=== PATIENT | female | born 1970 | race Caucasian/White ===

== ENCOUNTER → 2018-09-23 | Outpatient (CLI) | payer OTHER ==
[~2018-09-23] MED LIST: ESZO1 PO; LORA1 PO; MONT5TCH PO; OMEP20ER PO
[2018-09-26 15:07] LABS: HPV 16 Negative (Negative); HPV 18 Negative (Negative); HPV OTHER HR TYPES Negative (Negative)
== END | disposition home or self-care (01) ==
LOC: LAB SHORT 11:14 → LAB 11:14
PROVIDERS: Advanced Practice Midwife
DX: Z01.419 Encounter for gynecological examination (general) (routine) without abnormal findings (principal)
CPT/HCPCS: 87624; G0123

== ENCOUNTER 2021-04-14 02:06 | Emergency (ER) | payer OTHER ==
[~2021-04-14] VITALS: Ht 167.6 cm; Wt 99.8 kg
[2021-04-14] MEDS ORDERED: DECADRON6 M2 PO (03:19)
[2021-04-14] MEDS ORDERED: ONDA4ODT MM (03:19)
== END 2021-04-14 04:35 | disposition home or self-care (01) ==
LOC: ER 02:06
DX: U07.1 COVID-19 (principal); J45.909 Unspecified asthma, uncomplicated
CPT/HCPCS: 36415; 93005; 93010; 99283-25; A9270

== ENCOUNTER 2021-04-15 15:07 | Inpatient (IN) | payer OTHER ==
[~2021-04-15] VITALS: Ht 167.6 cm; Wt 95.8 kg
[~2021-04-15 15:07] MED LIST changes: +DECADRON6 M2 PO; +ONDA4ODT MM
[2021-04-15 16:14] LABS: BASOPHILS ABSOLUTE AUTO 0.04 K/mm3 (0.00-0.23); BASOPHILS PERCENT AUTO 0 % (0-2); EOSINOPHILS PERCENT AUTO 0 % (0-6); Hematocrit 41.5 % (33.0-51.0); Hemoglobin 13.6 g/dL (11.5-16.0); IMMATURE GRAN ABSOLUTE AUTO 0.46 K/mm3 (0.00-0.10); IMMATURE GRAN PERCENT AUTO 3 % (0-1); LYMPHOCYTES ABSOLUTE AUTO 1.15 K/mm3 (0.84-5.20); LYMPHOCYTES PERCENT AUTO 7 % (21-46); MONOCYTES ABSOLUTE AUTO 1.29 K/mm3 (0.16-1.47); MONOCYTES PERCENT AUTO 8 % (4-13); Mean Corpuscular HGB 29.2 pg (26.0-34.0); Mean Corpuscular HGB Conc 32.8 g/dL (31.5-36.5); Mean Corpuscular Volume 89 fL (80-100); NEUTROPHILS ABSOLUTE AUTO 13.99 K/mm3 (1.96-9.15); NEUTROPHILS PERCENT AUTO 83 % (41-73); Platelet Count 418 K/mm3 (150-400); RDW Coefficient Variation 13.4 % (11.7-14.2); RDW Standard Deviation 43.8 fL (35.1-46.3); Red Blood Cell Count 4.65 M/mm3 (3.80-5.20); White Blood Cell Count 16.93 K/mm3 (4.00-11.30)
[2021-04-15 16:54] LABS: Alanine Aminotransfer (ALT/SGP 97 U/L (12-78); Albumin, Blood 2.9 g/dL (3.4-5.0); Albumin/Globulin Ratio 0.5 (0.8-1.8); Alk Phos 70 U/L (50-136); Anion Gap 6 mmol/L (6-16); Aspartate Aminotrans (AST/SGOT 69 U/L (12-37); Bilirubin, Total 0.3 mg/dL (0.1-1.0); Blood Urea Nitrogen 17 mg/dL (8-24); Bun/Creatinine Ratio 26.9 (12.0-20.0); CO2, Blood 27 mmol/L (21-32); Calcium, Blood 9.1 mg/dL (8.5-10.1); Chloride, Blood 104 mmol/L (98-108); Creatinine, Blood 0.63 mg/dL (0.40-1.00); Globulin, Blood 5.3 g/dL (2.2-4.0); Glomerular Filtration Rate >60 (60-); Glucose, Blood 134 mg/dL (70-99); Potassium, Blood 4.4 mmol/L (3.5-5.5); Sodium, Blood 137 mmol/L (136-145); Total Protein, Blood 8.2 g/dL (6.4-8.2); Troponin I <0.015 ng/mL (0.000-0.040)
[2021-04-15 23:09] LABS: Source, Urine Catheter
[2021-04-15 23:18] LABS: Bilirubin, Urine Neg (Neg); Blood, Urine Neg (Neg); Glucose Qualitative, Urine Neg (Neg); Ketones, Urine Neg (Neg); Leukocyte Esterase, Urine 1+ (Neg); Nitrite, Urine Neg (Neg); Protein, Urine 1+ (Neg); Specific Gravity, Urine 1.015 (1.003-1.022); Urobilinogen, Urine NORM (Normal); pH, Urine 6.5 (5.0-8.0)
[2021-04-15 23:24] LABS: Appearance, Urine Clear (Clear); Color, Urine Yellow (P-Yellow)
[2021-04-15 23:25] LABS: Red Blood Cells, Urine 0-2 /hpf (0-2); Squamous Epithelial Cells Few /hpf (Few)
[2021-04-15 23:26] LABS: Bacteria Few /hpf
[2021-04-16 04:18] LABS: BASOPHILS ABSOLUTE AUTO 0.06 K/mm3 (0.00-0.23); BASOPHILS PERCENT AUTO 0 % (0-2); EOSINOPHILS PERCENT AUTO 0 % (0-6); Hematocrit 37.6 % (33.0-51.0); Hemoglobin 12.3 g/dL (11.5-16.0); IMMATURE GRAN ABSOLUTE AUTO 0.54 K/mm3 (0.00-0.10); IMMATURE GRAN PERCENT AUTO 3 % (0-1); LYMPHOCYTES ABSOLUTE AUTO 1.57 K/mm3 (0.84-5.20); LYMPHOCYTES PERCENT AUTO 10 % (21-46); MONOCYTES ABSOLUTE AUTO 1.41 K/mm3 (0.16-1.47); MONOCYTES PERCENT AUTO 9 % (4-13); Mean Corpuscular HGB Conc 32.7 g/dL (31.5-36.5); Mean Corpuscular Volume 89 fL (80-100); Mean Platelet Volume 9.8 fL (9.1-12.4); NEUTROPHILS ABSOLUTE AUTO 13.01 K/mm3 (1.96-9.15); NEUTROPHILS PERCENT AUTO 78 % (41-73); Platelet Count 410 K/mm3 (150-400); RDW Coefficient Variation 13.2 % (11.7-14.2); RDW Standard Deviation 43.2 fL (35.1-46.3); Red Blood Cell Count 4.24 M/mm3 (3.80-5.20); White Blood Cell Count 16.59 K/mm3 (4.00-11.30)
[2021-04-16 04:40] LABS: Alanine Aminotransfer (ALT/SGP 70 U/L (12-78); Albumin, Blood 2.5 g/dL (3.4-5.0); Albumin/Globulin Ratio 0.5 (0.8-1.8); Alk Phos 61 U/L (50-136); Anion Gap 6 mmol/L (6-16); Aspartate Aminotrans (AST/SGOT 42 U/L (12-37); Bilirubin, Total 0.2 mg/dL (0.1-1.0); Blood Urea Nitrogen 15 mg/dL (8-24); Bun/Creatinine Ratio 27.4 (12.0-20.0); CO2, Blood 27 mmol/L (21-32); Chloride, Blood 106 mmol/L (98-108); Creatinine, Blood 0.55 mg/dL (0.40-1.00); Globulin, Blood 4.6 g/dL (2.2-4.0); Glomerular Filtration Rate >60 (60-); Glucose, Blood 122 mg/dL (70-99); Potassium, Blood 4.1 mmol/L (3.5-5.5); Sodium, Blood 139 mmol/L (136-145); Total Protein, Blood 7.1 g/dL (6.4-8.2)
--- NOTE | 2021-04-16 04:44 | NUR ---
SUMMARY PT ARRIVED TO FLOOR ON BIPAP. PT REPORTS TAN W/ LITTLE MOVEMENT. PT UNABLE TO TOLERATE BEING OFF MASK TO TAKE IN PO FLUIDS. PROVIDER ORDERED A OT BAG NS FLUIDS. PT ABLE TO PRONE AND GET FIO2 REDUCED. PT CURRENTLY LAYING PRONE AND IN NO DISTRESS. PT STATES SHE IS COMFORTABLE. PT HAS ALLRED CATH PLACED AND IS DRAINING TO GRAVITY.
--- NOTE | 2021-04-16 18:20 | NUR ---
PT HAS BEEN IN PRONE POSITION FOR MOST OF THE DAY WITH SPO2 IN THE MID 90s. PT WAS PLACED ON AIRVO BRIEFLY TODAY WHICH SHE TOLERATED WELL FOR ABOUT 30 MINUTES BEFORE SHE REQUIRED RETURN TO BIPAP. PT IS A/O X3, ANSWERS QUESTIONS APPROPRIATELY IN SHORT SENTENCES. PT DENIES CP, REPORTS SOB WITH MOVEMENT. C/O LEMOS AND NECK PAIN T/O THE DAY R/T PRONING, TREATED WITH MORHPINE FOR PAIN WHICH WAS TOLERATED WELL. PT WAS GIVEN ROBITUSSIN AC THIS EVENING FOR COUGH. PT IS CURRENTLY RESTING IN PRONE POSITION IN BED.
[2021-04-17 04:57] LABS: Hematocrit 35.9 % (33.0-51.0); Hemoglobin 11.5 g/dL (11.5-16.0); Mean Corpuscular HGB 29.3 pg (26.0-34.0); Mean Corpuscular Volume 92 fL (80-100); Mean Platelet Volume 9.5 fL (9.1-12.4); Platelet Count 377 K/mm3 (150-400); RDW Coefficient Variation 13.5 % (11.7-14.2); RDW Standard Deviation 45.4 fL (35.1-46.3); Red Blood Cell Count 3.92 M/mm3 (3.80-5.20); White Blood Cell Count 13.42 K/mm3 (4.00-11.30)
[2021-04-17 05:46] LABS: Alanine Aminotransfer (ALT/SGP 51 U/L (12-78); Albumin, Blood 2.3 g/dL (3.4-5.0); Albumin/Globulin Ratio 0.5 (0.8-1.8); Alk Phos 56 U/L (50-136); Anion Gap 5 mmol/L (6-16); Aspartate Aminotrans (AST/SGOT 35 U/L (12-37); Bilirubin, Total 0.2 mg/dL (0.1-1.0); Blood Urea Nitrogen 17 mg/dL (8-24); CO2, Blood 27 mmol/L (21-32); Calcium, Blood 8.1 mg/dL (8.5-10.1); Chloride, Blood 106 mmol/L (98-108); Creatinine, Blood 0.52 mg/dL (0.40-1.00); Globulin, Blood 4.5 g/dL (2.2-4.0); Glomerular Filtration Rate >60 (60-); Glucose, Blood 93 mg/dL (70-99); Magnesium, Blood 2.1 mg/dL (1.6-2.4); Potassium, Blood 4.1 mmol/L (3.5-5.5); Sodium, Blood 138 mmol/L (136-145); Total Protein, Blood 6.8 g/dL (6.4-8.2)
--- NOTE | 2021-04-17 06:36 | NUR ---
SHIFT SUMMARY PATIENT IS AN ANXIOUS LADY WHO IS A&OX4, WITH GEN WEAKNESS/FATIGUE. ON BIPAP 75% MOST OF THE NIGHT AND INTERMITTENTLY ON AIRVO 60L, 80% FOR DRINKS AND MEDS. ON THE AIRVO CURRENTLY AND TOLERATING THIS WELL SATING IN THE MID 90'S. COARSE CRACKLES HEARD BILATERALLY. TACHYPENIC. GASPING FOR AIR WHEN TALKING SO KEEPING THIS TO A MINIMUM. DOING A GREAT JOB AT SELF PRONING AND SIDE TO SIDE. NSR ON THE MONITOR. VSS. COGUH SYRUP GIVEN FOR PRODUCTIVE COUGH AND MORPHINE FOR BACK SORENESS WITH GOOD RELIEF. REG DIET BUT POOR ORAL INTAKE R/T BREATHING. ALLRED IN PLACE DRAINING TO GRAVITY. BEDREST UNTIL O2 DEMANDS DOWN.NO ACUTE CONCERNS AT THIS TIME. WILL CONTINUE TO MONITOR UNTIL REPORT GIVEN TO DAYSHIFT RN.
--- NOTE | 2021-04-18 05:26 | NUR ---
SHIFT SUMMARY NO ACUTE CHANGES THIS SHIFT. PT A&OX4, SOMEWHAT ANXIOUS. SP02>90% ON BIPAP, 07/30, 90% FI02. PT ALSO WORE AIRVO, 60L, 90%, WHEN FEELING CLAUSTROPHOBIC ON BIPAP. DYSPNEA W/ ANY EXERTION. DESATS TO LOW 80'S WHEN REPOSITIONING, RECOVERS SLOWLY OVER A FEW MINUTES. PT REPOSITIONED AND PRONED SELF DURING SHIFT. TELEMETRY READ NSR/SB, HR 50'S-60'S. ALLRED CATHETER DRAINING CLEAR YELLOW URINE TO GRAVITY. PT C/O OF BACK AND NECK PAIN. MEDICATED PER EMAR AND PLACED HEATING PAD W/ SOME RELIEF. FLUIDS INFUSING PER EMAR. CALL LIGHT IN REACH. WILL GIVE REPORT TO ONCOMING NURSE.
--- NOTE | 2021-04-18 18:53 | NUR ---
SHIFT SUMMARY: PT CONTINUES A&OX4 W/MOMENTS OF MILD ANXIETY. PT MAINTAINING RESPIRATORY STATUS, SWITCHING BETWEEN BIPAP AT 12/8 AND AIRVO AT 60 L AND 80%, O2 SATS >90%. SR ON MONITOR. INDWELLING ALLRED PATENT, DRAINING TO GRAVITY. PT UP TO BEDSIDE CHAIR THIS AFTERNOON, TOLERATED WELL. PT ALSO RECEIVING PRN MEDICATION FOR PAIN AND ANXIETY. WILL CONTINUE TO MONITOR AND TREAT ACCORDINGLY UNTIL CHANGE OF SHIFT.
--- NOTE | 2021-04-18 22:31 | NUR ---
ASSUMED CARE OF CHELA AT APPROXIMATELY 1905 FROM JACEY Valerio RN. PATIENT ALERT AND ORIENTED X4; PATIENT REPORTS PAIN IN HER BACK; K-PAD IN PLACE AND MEDICATED PER EMAR. PATIENT DENIES NUMBNESS, TINGLING, DIZZINES OR NAUSEA. NSR ON TELE; OXYGEN SATURATION ABOVE 90% ON BIPAP 12/8 70% FIO2. PATIENT HELPS TO TURN SELF. URINARY CATH DRAINING TO GRAVITY.
--- NOTE | 2021-04-19 00:30 | NUR ---
PATIENT HAD COUGHING EPISODE AND OXYGEN SATURATION DROPPED TO LOW 80S; GIVEN PRN COUGH MEDICATION; TITRATED UP TO 100 FIO2 ON BIPAP AND NOT GOING ABOVE 84% FOR ABOUT FIVE MINUTES; PATIENT ENCOURAGED TO PRONE; RT NOTIFIED; MADE COMFORTABLE ON STOMACH AND PATIENT ABLE BACK UP TO 92%
--- NOTE | 2021-04-19 04:00 | NUR ---
RT GAY CALLED THIS RN TO ROOM TO REPORT PATIENT'S RESPIRATORY RATE IN THE 50'S; PATIENT ANXIOUS AND REPORTS CRAMPS IN ABDOMEN; MEDICATED FOR ANXIETY. CHELA REPORTS "I'M JUST TRYING TO WORK THROUGH A CRAMP"; REPORTS BACK PAIN; MEDICATED PER EMAR. RESPIRATORY RATE 30-50'S. REPORTS IMPROVEMENT AFTER ATIVAN AND PAIN MEDICATION.
[2021-04-19 04:43] LABS: Hematocrit 36.8 % (33.0-51.0); Hemoglobin 11.9 g/dL (11.5-16.0); Mean Corpuscular HGB 28.6 pg (26.0-34.0); Mean Corpuscular HGB Conc 32.3 g/dL (31.5-36.5); Mean Corpuscular Volume 89 fL (80-100); Mean Platelet Volume 9.5 fL (9.1-12.4); Platelet Count 314 K/mm3 (150-400); RDW Standard Deviation 42.5 fL (35.1-46.3); Red Blood Cell Count 4.16 M/mm3 (3.80-5.20); White Blood Cell Count 17.86 K/mm3 (4.00-11.30)
[2021-04-19 05:16] LABS: Alanine Aminotransfer (ALT/SGP 44 U/L (12-78); Albumin, Blood 2.4 g/dL (3.4-5.0); Albumin/Globulin Ratio 0.5 (0.8-1.8); Alk Phos 64 U/L (50-136); Anion Gap 4 mmol/L (6-16); Aspartate Aminotrans (AST/SGOT 29 U/L (12-37); Bilirubin, Total 0.6 mg/dL (0.1-1.0); Blood Urea Nitrogen 14 mg/dL (8-24); Bun/Creatinine Ratio 28.7 (12.0-20.0); CO2, Blood 32 mmol/L (21-32); Calcium, Blood 8.6 mg/dL (8.5-10.1); Chloride, Blood 101 mmol/L (98-108); Creatinine, Blood 0.49 mg/dL (0.40-1.00); Globulin, Blood 4.8 g/dL (2.2-4.0); Glomerular Filtration Rate >60 (60-); Glucose, Blood 90 mg/dL (70-99); Potassium, Blood 3.5 mmol/L (3.5-5.5); Sodium, Blood 137 mmol/L (136-145); Total Protein, Blood 7.2 g/dL (6.4-8.2)
[2021-04-19 05:26] LABS: C-REACTIVE PROTEIN, EXT RANGE >19.000 mg/dL (0.000-0.300)
--- NOTE | 2021-04-19 06:05 | NUR ---
CALLED DR. HAYWARD TO REPORT D-DIMER OF 11; WORSEN RESPIRATORY STATUS; ORDERS FOR CT PE.
--- NOTE | 2021-04-19 18:57 | NUR ---
PT A&OX4 AND ABLE TO MAKE NEEDS KNOWN. PT HAS BEEN CHANGING FROM AIRVO TO BIPAP DURING SHIFT. PT O2 SATURATIONS HAVE RANGED FROM MID 80'S TO MID 90'S. PT C/O BACK PAIN, NECK PAIN, AND A HEAD ACHE DURING SHIFT. MEDICATED PER EMAR.
--- NOTE | 2021-04-19 20:20 | NUR ---
ASSUMED CARE OF PATIENT AT APPROXIMATELY 1900 FROM KENDRA Elizondo RN. PATIENT ALERT AND ORIENTED X4; PATIENT REPORTS PAIN IN HER BACK; K-PAD IN PLACE AND MEDICATED PER EMAR. PATIENT ANXIOUS AT TIMES; REPORTS FEELING BETTER; PATIENT DENIES NUMBNESS, TINGLING, DIZZINES OR NAUSEA. NSR ON TELE; OXYGEN SATURATION ABOVE 90% ON BIPAP 12/8 100% FIO2. PATIENT HELPS TO TURN SELF. URINARY CATH DRAINING TO GRAVITY.
--- NOTE | 2021-04-19 21:05 | NUR ---
PATIENT HAD COUGHING EPISODE AND VERY ANXIOUS; MEDIATED PER EMAR. PATIENT WAS AT 85% AND DROPPED DOWN TO 81%; ENCOURAGED TO PRONE; PATIENT PRONE AND SATS WENT UP TO 88% AND WOULD GO BETWEEN 81-88%; RT CALLED AND PATIENT'S PRESSURES ON BIPAP ADJUSTED; SATS UP TO 92%
--- NOTE | 2021-04-20 01:39 | NUR ---
PATIENT'S OXYGEN SATURATION 84-86% WHILE PRONING MAXED OUT ON BIPAP SLEEPING; DISCUSSED WITH RT; PRESSURES INCREASED TO FROM 08/05 TO ; ALSO DISCUSSED WITH ICU ROAD TRAFFIC CONTROLLER AND PATIENT PLACED IN REVERSE [place] WHILE PATIENT PRONE; CURRENT OXYGEN SATURATION 96%.
[2021-04-20 05:55] LABS: BASOPHILS ABSOLUTE AUTO 0.08 K/mm3 (0.00-0.23); BASOPHILS PERCENT AUTO 0 % (0-2); EOSINOPHILS ABSOLUTE AUTO 0.07 K/mm3 (0.00-0.68); EOSINOPHILS PERCENT AUTO 0 % (0-6); Hematocrit 35.3 % (33.0-51.0); Hemoglobin 11.4 g/dL (11.5-16.0); IMMATURE GRAN ABSOLUTE AUTO 1.12 K/mm3 (0.00-0.10); IMMATURE GRAN PERCENT AUTO 6 % (0-1); LYMPHOCYTES ABSOLUTE AUTO 1.69 K/mm3 (0.84-5.20); LYMPHOCYTES PERCENT AUTO 9 % (21-46); MONOCYTES ABSOLUTE AUTO 0.91 K/mm3 (0.16-1.47); MONOCYTES PERCENT AUTO 5 % (4-13); Mean Corpuscular HGB 28.7 pg (26.0-34.0); Mean Corpuscular HGB Conc 32.3 g/dL (31.5-36.5); Mean Corpuscular Volume 89 fL (80-100); NEUTROPHILS ABSOLUTE AUTO 14.98 K/mm3 (1.96-9.15); NEUTROPHILS PERCENT AUTO 80 % (41-73); Platelet Count 224 K/mm3 (150-400); RDW Coefficient Variation 13.1 % (11.7-14.2); Red Blood Cell Count 3.97 M/mm3 (3.80-5.20); White Blood Cell Count 18.85 K/mm3 (4.00-11.30)
[2021-04-20 06:20] LABS: Anion Gap 3 mmol/L (6-16); Blood Urea Nitrogen 13 mg/dL (8-24); Bun/Creatinine Ratio 24.9 (12.0-20.0); CO2, Blood 32 mmol/L (21-32); Calcium, Blood 8.8 mg/dL (8.5-10.1); Chloride, Blood 98 mmol/L (98-108); Creatinine, Blood 0.52 mg/dL (0.40-1.00); Glomerular Filtration Rate >60 (60-); Glucose, Blood 82 mg/dL (70-99); Potassium, Blood 4.3 mmol/L (3.5-5.5); Sodium, Blood 133 mmol/L (136-145)
--- NOTE | 2021-04-20 06:50 | NUR ---
PATIENT SLEPT ABOUT SIX HOURS; BED BATH GIVEN; NO CHANGES ON OXYGEN; ON BIPAP ALL NIGHT; 88-92%; R/R UP TO 50 AT TIMES.
--- NOTE | 2021-04-20 09:30 | NUR ---
PATIENT ALERT AND ORIENTED X 4. PATIENT HAS TEMP OF 99.9 DEGREES FAHRENHEIT. PATIENT ANXIOUS. PATIENT GIVEN 2 MG PRN IV ATIVAN AND STARTED ON PRECEDEX DRIP AT 0.6 MCG/ KG/ HOUR. PATIENT WEAK BUT ABLE TO REPOSITION SELF. PATIENT ON BIPAP SETTINGS OF 17/15, RATE OF 10 AND 100% FIO2. LUNGS DIMINISHED THROUGHOUT. PATIENT HAS MOIST, PRODUCTIVE COUGH. PATIENT STATES SHE IS NOT LOOKING AT PHLEGM. PATIENT IN ST, HR IN THE 1-TEENS. SBP IN THE 120S. PATIENT NPO. ALLRED DRAINING YELLOW COLORED URINE. PATIENT MENSTRATING. SKIN APPEARS WNL. NS TKO. BED LOW, CALL LIGHT IN REACH. PATIENT ORIENTED TO UNIT, ROOM AND CALL LIGHT. WILL CONTINUE TO MONITOR PATIENT FREQUENTLY THROUGHOUT SHIFT.
--- NOTE | 2021-04-20 09:35 | NUR ---
PATIENT PAIN AND TRANSFER TO ICU: LATE ENTRY: PRIOR TO TRANSFER TO THE ICU, PATIENT MEDICATED FOR PAIN PER PRNS BY HELPER RN. PATIENT TRANSFERED TO ICU WITH ASSISTANCE OF INSTRUCTOR DANCING KAREN. FAMILY WAS CALLED AND NOTIFIED BY INSTRUCTOR DANCING. KAREN.
--- NOTE | 2021-04-20 10:15 | NUR ---
PATIENT'S ARRIVED TO SEE PATIENT. DR. KAY AND PRIMARY NURSE SPOKE WITH PATIENT. DR. KAY EXPLAINED THAT IT IS LIKELY WE WILL HAVE TO INTUBATE PATIENT AND THE SERIOUSNESS OF COVID AND BEING PLACED ON VENTILATOR. GOING INTO ROOM TO SPEAK WITH PATIENT NOW.
--- NOTE | 2021-04-20 13:45 | NUR ---
PATIENT HAS TEMP OF 100.2 DEGREES FAHRENHEIT. PATIENT NOT ANXIOUS SHE WAS UPON ARRIVAL. PATIENT REMAINS ON PRECEDEX. PATIENT REMAINS ON SAME BIPAP SETTINGS. RR 20S TO 40S. HR 70S TO 80S. SBP LOW 100S TO 120S. NO COMPLAINTS AT THIS TIME. WILL CONTINUE TO MONITOR.
--- NOTE | 2021-04-20 16:00 | NUR ---
HR IN THE 60S. SBP 120S TO 130S. RR 30S. BIPAP REMAINS UNCHANGED. NO OTHER CHANGES AT THIS TIME.
--- NOTE | 2021-04-20 18:40 | NUR ---
SHIFT SUMMARY PATIENT REMAINED ALERT AND ORIENTED. PATIENT MOSTLY SLEPT AFTER BEING PLACED ON PRECEDEX TO HELP WITH ANXIETY. PRECEDEX HAS REMAINED AT 0.6 MCG/ KG/ HOUR. PATIENT HAD TMAX OF 100.2 DEGREES FAHRENHEIT. PATIENT HAD NO COMPLAINTS OF PAIN. PATIENT REMAINED WEAK BUT ABLE TO REPOSITION SELF IN BED. LUNGS REMAINED DIMINISHED T/O. PATIENT REMAINED ON BIPAP 17/, RATE OF 10 AND 100% FIO2. PATIENT CONTINUED TO HAVE OCCASIONAL, MOIST, PRODUCTIVE COUGH. PATIENT SR TO ST, HR 60S TO 1-TEENS. SBP 90S TO 130S. PATIENT INCREASED FROM NPO TO CLEAR LIQUID DIET. NO BM THIS SHIFT. ALLRED DRAINED 900 MLS OF YELLOW COLORED URINE. PATIENT ON MENSTRATION; ATTENDS IN PLACE. SKIN WNL. NS TKO. LR AT 50 MLS/ HOUR. PATIENT APPEARS COMFORTABLE AT THIS TIME. BED LOW, CALL LIGHT IN REACH. REPORT WILL BE GIVEN TO ONCOMING CLINICAL TRIAL ASSOCIATE NURSE SHORTLY.
--- NOTE | 2021-04-20 22:23 | NUR ---
SHIFT ASSESSMENT ASSUMED CARE OF PT @ 1900. PT A&OX4, MOVING ALL EXTREMITIES, ASSISTING WITH MOVEMENTS IN BED. BECOMES DYSPNEIC WITH SMALL MOVEMENTS. ON BIPAP-17/15 @ 100% c SATS RANGING FROM 90-95%, RR 35-40. PRECEDEX @ 0.6MCG/KG/HR. OCCASIONAL MOIST COUGH. SINUS/ SINUS NITIN ON THE MONITOR. BP STABLE. ALLRED CATH PATENT, DRAINING YELLOW URINE. PT ON MENSES, ATTENDS IN PLACE. UPDATED.
[2021-04-21 04:15] LABS: BASOPHILS ABSOLUTE AUTO 0.06 K/mm3 (0.00-0.23); BASOPHILS PERCENT AUTO 0 % (0-2); EOSINOPHILS ABSOLUTE AUTO 0.01 K/mm3 (0.00-0.68); EOSINOPHILS PERCENT AUTO 0 % (0-6); Hematocrit 33.8 % (33.0-51.0); Hemoglobin 11.2 g/dL (11.5-16.0); IMMATURE GRAN ABSOLUTE AUTO 1.01 K/mm3 (0.00-0.10); IMMATURE GRAN PERCENT AUTO 6 % (0-1); LYMPHOCYTES ABSOLUTE AUTO 0.98 K/mm3 (0.84-5.20); LYMPHOCYTES PERCENT AUTO 6 % (21-46); MONOCYTES ABSOLUTE AUTO 0.78 K/mm3 (0.16-1.47); MONOCYTES PERCENT AUTO 5 % (4-13); Mean Corpuscular HGB 28.9 pg (26.0-34.0); Mean Corpuscular HGB Conc 33.1 g/dL (31.5-36.5); Mean Corpuscular Volume 87 fL (80-100); Mean Platelet Volume 10.5 fL (9.1-12.4); NEUTROPHILS ABSOLUTE AUTO 13.24 K/mm3 (1.96-9.15); NEUTROPHILS PERCENT AUTO 82 % (41-73); Platelet Count 249 K/mm3 (150-400); RDW Coefficient Variation 13.1 % (11.7-14.2); Red Blood Cell Count 3.87 M/mm3 (3.80-5.20); White Blood Cell Count 16.08 K/mm3 (4.00-11.30)
[2021-04-21 04:33] LABS: Albumin, Blood 1.9 g/dL (3.4-5.0); Anion Gap 5 mmol/L (6-16); Blood Urea Nitrogen 18 mg/dL (8-24); Bun/Creatinine Ratio 39.8 (12.0-20.0); CO2, Blood 29 mmol/L (21-32); Calcium, Blood 8.3 mg/dL (8.5-10.1); Chloride, Blood 103 mmol/L (98-108); Creatinine, Blood 0.45 mg/dL (0.40-1.00); Glomerular Filtration Rate >60 (60-); Glucose, Blood 148 mg/dL (70-99); Potassium, Blood 4.5 mmol/L (3.5-5.5); Sodium, Blood 137 mmol/L (136-145)
--- NOTE | 2021-04-21 07:54 | NUR ---
SHIFT SUMMARY PT ALERT AND ORIENTED, REMAINS ON BIPAP @ PREVIOUS SETTINGS. PRECEDEX @ 0.7MCG/KG/HR. AFEBRILE. PT ASSISTING WITH TURNS. ABLE TO SLEEP FOR MOST OF THE NIGHT. ALLRED CATH DRAINING YELLOW URINE. NO SIGNIFICANT CHANGES IN PT CONDITION DURING THE NIGHT.
--- NOTE | 2021-04-21 09:38 | NUR ---
during opral care and repositioning, patient started to drop after ahving to rinse mouth total time off bipap 15 seconds, sp02 dropped in the low 70's. RT and provider aware.
--- NOTE | 2021-04-21 11:55 | NUR ---
CARE ASSUMED SPO2 88-91% ON ARRIVAL, PT ON BIPAP , FIO2 100%, RR 32. LS CLEAR, DIMINISHED, DRY COUGH NOTED. HR 48 SBR WITH PRECEDEX INFUSING, RATE DECREASED TO 0.5MCG, HR NOW 50'S. BP STABLE. PT SLEEPY BUT WAKES EASILY, ORIENTED X4, APPROPRIATE AND COOPERATIVE. AM CARES COMPLETED, PT BECAME INCREASINGLY HYPOXIC WITH SPO2 LOW 80'S DESPITE MASK REPOSITIONING AND RESPIRATORY COACHING. DR. STEVEN AT BEDSIDE TO ASSESS, PT PRONED AT 0950 WITH GOOD RESULTS. BIPAP SETTINGS UNCHANGED, SPO2 NOW 96%, PT SLEEPING IN PRONE POSITION. WILL CONTINUE TO MONITOR.
--- NOTE | 2021-04-21 19:15 | NUR ---
ASSUMED CARE PT IS ON BIPAP WITH FIO2 100%. SPO2 IN MID 90'S, DROPS TO 80'S WITH EXERTION. SHE IS AOX4/4, PERRL 3MM, LS CLEAR, DIM IN BASES. ABD OBESE, BT PRESENT, ON CLINIMIX DUE TO UNABLE TO TOLERATE BREAKS FROM BIPAP. ALLRED DRAINING MAXX URINE. ON PRECEDEX GTT FOR BIPAP TOLERANCE. WILL CONTINUE TO MONITOR.
--- NOTE | 2021-04-21 19:51 | NUR ---
SHIFT SUMMARY PT WAS PRONED ALL DAY UNTIL AROUND 1800 THIS EVENING WITH SPO2 96%, BIPAP SETTINGS UNCHANGED. TOELRATED BIPAP AND PRONING WELL WITH PRECEDEX 0.5MCG. PT REPOSITIONED SELF ONTO BACK THIS EVENING AND SPO2 DECREASED TO 87%, ALLOWING PT A SHORT BREAK BEFORE PRONING AGAIN. MEDICATED X2 WITH MS FOR BACK PAIN, PT DENIED OTHER C/O TODAY. CLINIMIX STARTED PER ORDERS.
--- NOTE | 2021-04-21 20:23 | NUR ---
DR. STEVEN CONTACTED REGARDING CONCERN FOR DECREASED O2 SAT. PT HAD TURNED TO HER SIDE AND SPO2 DROPPED FROM THE MID 90'S TO MID 80'S, SO PT WAS ENCOURAGED TO PRONE. SHE HAS BEEN IN PRONE POSITION FOR APPROX 20 MIN AND SPO2 REMAINS BELOW 90%. MAY TOLERATE SPO2 OF 86% OR GREATER AND CALL HOSPITALIST FOR INTUBATION IF PT CRASHES.
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
--- NOTE | 2021-04-22 02:30 | NUR ---
PT IS ASSISTED WITH SIP OF WATER AND REQUESTS PAIN MEDICATIONS FOR HER BACK. PAIN MED GIVEN WELL BACK RUB AND HEATING PAD APPLIED.
[2021-04-22 05:05] LABS: BASOPHILS ABSOLUTE AUTO 0.04 K/mm3 (0.00-0.23); BASOPHILS PERCENT AUTO 0 % (0-2); EOSINOPHILS PERCENT AUTO 0 % (0-6); Hematocrit 33.7 % (33.0-51.0); IMMATURE GRAN ABSOLUTE AUTO 0.82 K/mm3 (0.00-0.10); IMMATURE GRAN PERCENT AUTO 4 % (0-1); LYMPHOCYTES ABSOLUTE AUTO 0.88 K/mm3 (0.84-5.20); LYMPHOCYTES PERCENT AUTO 4 % (21-46); MONOCYTES PERCENT AUTO 5 % (4-13); Mean Corpuscular HGB 28.9 pg (26.0-34.0); Mean Corpuscular HGB Conc 32.6 g/dL (31.5-36.5); Mean Corpuscular Volume 89 fL (80-100); Mean Platelet Volume 10.5 fL (9.1-12.4); NEUTROPHILS ABSOLUTE AUTO 17.09 K/mm3 (1.96-9.15); NEUTROPHILS PERCENT AUTO 86 % (41-73); Platelet Count 317 K/mm3 (150-400); RDW Coefficient Variation 13.2 % (11.7-14.2); RDW Standard Deviation 42.7 fL (35.1-46.3); White Blood Cell Count 19.83 K/mm3 (4.00-11.30)
--- NOTE | 2021-04-22 06:42 | NUR ---
SHIFT SUMMARY PT HAS EPISODE OF SPO2 IN MID 80'S FOLLOWING TURNING IN BED, WHICH CAUSED HER SOME SIGNIFICANT ANXIETY EARLY IN THE SHIFT. PT IS REASSURED, GIVEN MEDICATION FOR ANXIETY, AND BACK RUB FOR PAIN WHILE PRONED. PAIN MED AND KPAD HELPED WITH BACK PAIN. PT STAYED IN PRONE POSITION FOR SEVERAL HOURS , THEN LAYED ON R SIDE WITH HOB ELEVATED. SPO2 REMAINED IN THE 90'S FOR THE REST OF THE NIGHT WITH THE EXCEPTION OF SHORT BREAKS FOR ORAL CARE AND SIPS OF WATER. SPO2 DROPS TO 70'S AND 80'S DURING BREAKS BUT RECOVERS QUICKLY. PT HAS STILL NOT HAD BM. UO 700ML DARK MAXX. PT HAS OCC DRY COUGH. WILL CONTINUE TO MONITOR AND REPORT TO ONCOMING SHIFT.
--- NOTE | 2021-04-22 09:13 | NUR ---
CARE ASSUMED ASSESSMENTS COMPLETED, PT REMAINS A&O, ANXIOUS BUT COOPERATIVE. ON BIPAP 17/5, FIO2 100%. RR 30'S, SPO2 93% AT REST, 87% WITH ACTIVITY, RECOVERS WELL. Vt 400-500. LS CLEAR, DIMINISHED, DRY COUGH NOTED. HR 50'S-60'S ON PRECEDEX 0.5MCG, ATIVAN ADMINISTERED FOR ANXIETY AT THIS TIME. BP STABLE, PPP, NO EDEMA NOTED, SKIN PWD WITH CMS INTACT. URINE CLEAR YELLOW, PT MENSTRUATING. AM CARES COMPLETED.
--- NOTE | 2021-04-22 14:49 | NUR ---
INTUBATION NOTE SPO2 DESAT TO LOW 80'S, ATTEMPTED TO REPOSITION TO PRONE, PT REMAINED HYPOXIC, BIPAP MASK LEAKING D/T INCREASED WOB. DR. STEVEN NOTIFIED, DECISION TO INTUBATE. PT'S UPDATED. LEVOPHED ON PER DR. STEVEN, PT SEDATED TO TOTAL OF 4MG VERSED, 20MG ETOMIDATE, AND 40MG ROCURONIUM, PRECEDEX OFF, INTUBATED WITH 8.0 ETT. LS PRESENT BILAT, POSITIVE COLOR CHANGE ON COLORIMETRIC CO2 DEVICE, ETT ADVANCED TO 26CM ALEJANDRO AFTER CXR. OGT INSERTED, PLACEMENT ALSO CONFIRMED ON CXR. VENT AC 24, VC+ 350, Ti 0.98, PEEP 17, FIO2 100%. SPO2 SLOWLY INCREASED TO 92%. PT SEDATED WITH PROPOFOL 40MCG, AND FENTANYL 50MCG/HR, PARALYZED WITH NIMBEX 2.5MCG, PRONED. LS DIMINISHED, COARSE IN LOWER LOBES BILAT, NO ETT SUCTIONING AT THIS TIME D/T INSTABILITY PER RT. HR 100-110 SIT, BP STABLE, LEVO TITRATED OFF. AT BEDSIDE AWAITING UPDATE FROM DR. STEVEN. INTUBATION FLOWSHEET: 1215: LEVOPHED 5MCG/KG/MIN INFUSION 1218: PRECEDEX OFF, VERSED 2MG IVP 1222: ETOMIDATE 20MG IVP 1223: ROCURONIUM 40MG IVP 1224: VERSED 2MG IVP 1225: INTUBATED ETT 8.0, 24CM ALEJANDRO 1230: PROPOFOL INITIATED 20MCG/KG/MIN SEE ICU FLOWSHEET FOR TITRATIONS.
--- NOTE | 2021-04-22 19:00 | NUR ---
END OF SHIFT PT REMAINED PRONE T/O REST OF SHIFT, TOLERATED WELL WITH SPO2 >90%. VSS AT THIS TIME, INTERMITTENT HYPERTENSIVE BP'S, HYDRALAZINE PRN BUT HAS NOT BEEN ADMINISTERED. HR 60-70'S SINUS. LS COARSE, NO ETT SECRETIONS, UNABLE TO COLLECT SPUTUM SAMPLE. VENT SETTINGS UNCHANGED, PROPOFOL 50MCG, FENTANYL 50MCG, NIMBEX 2.5MCG. BIS 40'S, TOF 2/4. PT REPOSITIONED, TF INFUSING PER ORDERS. GIVEN UPDATE BY DR. STEVEN THIS AFTERNOON.
--- NOTE | 2021-04-22 19:15 | NUR ---
ASSUMED CARE OF PT. REPORT RECEIVED FROM TYSON SHEFFIELD AND MARBELLA BALTAZAR. PT WAS INTUBATED AND PLACED ON VENTILATOR TODAY. 8.[address] AT 26 AT TEETH. VENT AC/VC 24/350/17/100%. PT IS IN PRONE POSITION. SEDATION WITH PROPOFOL AND FENTANYL GTTS, NIMBEX FOR VENT COMPLIANCE. TO4 2/4 AND BIS RANGING IN THE 40'S. OG IN PLACE WITH TF AT GOAL, LS DIM. ABD SOFT, BT HYPOACTIVE, NO BM SINCE ADMISSION. ECT NO EDEMA, PULSES PRESENT. WILL CONTINUE TO MONITOR.
[2021-04-23 04:32] LABS: BASOPHILS ABSOLUTE AUTO 0.08 K/mm3 (0.00-0.23); BASOPHILS PERCENT AUTO 0 % (0-2); EOSINOPHILS PERCENT AUTO 0 % (0-6); Hematocrit 34.7 % (33.0-51.0); Hemoglobin 11.2 g/dL (11.5-16.0); IMMATURE GRAN PERCENT AUTO 5 % (0-1); LYMPHOCYTES ABSOLUTE AUTO 0.73 K/mm3 (0.84-5.20); LYMPHOCYTES PERCENT AUTO 3 % (21-46); MONOCYTES ABSOLUTE AUTO 1.06 K/mm3 (0.16-1.47); MONOCYTES PERCENT AUTO 5 % (4-13); Mean Corpuscular HGB 28.8 pg (26.0-34.0); Mean Corpuscular HGB Conc 32.3 g/dL (31.5-36.5); Mean Corpuscular Volume 89 fL (80-100); Mean Platelet Volume 10.3 fL (9.1-12.4); NEUTROPHILS ABSOLUTE AUTO 18.78 K/mm3 (1.96-9.15); NEUTROPHILS PERCENT AUTO 87 % (41-73); Platelet Count 336 K/mm3 (150-400); RDW Coefficient Variation 13.5 % (11.7-14.2); RDW Standard Deviation 44.5 fL (35.1-46.3); Red Blood Cell Count 3.89 M/mm3 (3.80-5.20); White Blood Cell Count 21.65 K/mm3 (4.00-11.30)
[2021-04-23 04:49] LABS: Albumin, Blood 1.9 g/dL (3.4-5.0); Anion Gap 6 mmol/L (6-16); Blood Urea Nitrogen 25 mg/dL (8-24); Bun/Creatinine Ratio 55.2 (12.0-20.0); CO2, Blood 30 mmol/L (21-32); Calcium, Blood 9.1 mg/dL (8.5-10.1); Chloride, Blood 103 mmol/L (98-108); Creatinine, Blood 0.45 mg/dL (0.40-1.00); Glomerular Filtration Rate >60 (60-); Glucose, Blood 175 mg/dL (70-99); Phosphorus, Blood 3.8 mg/dL (2.5-4.9); Potassium, Blood 4.3 mmol/L (3.5-5.5); Sodium, Blood 139 mmol/L (136-145)
--- NOTE | 2021-04-23 08:30 | NUR ---
INITIAL ASSESSMENT PATIENT INTUBATED, SEDATED AND PARALYZED. BIS IN THE 20S. TOF 4/4. PATIENT AFEBRILE. NO SIGNS OF PAIN NOTED. PATIENT ON VENT SETTINGS OF AC/ VC 24, TV 350, PEEP 17 AND 100% FIO2. LUNGS COARSE AND WHEEZY THROUGHOUT. NO SPUTUM NOTED THIS AM WITH ETT SUCTIONING. PATIENT IN SR, HR 70S TO 90S. SBP 90S TO 140S. PULSES DOPPLER IN BILAT FEET. TF INFUSING AT GOAL RATE. DATE OF LAST BM UNKNOWN. PRN SUPPOSITORY GIVEN. ALLRED IN PLACE DRAINING PINK/ YELLOW, FROTHY URINE. PATIENT MENSTRATING. SKIN APPEARS WNL. FENTANYL INFUSING AT 50 MCG/ HOUR, PROPOFOL AT 60 MCG/ KG/ MINUTE, NIMBEX AT 2.5 MCG/ KG/ MINUTE, NS TKO. WILL CONTINUE TO MONITOR PATIENT FREQUENTLY THROUGHOUT SHIFT.
--- NOTE | 2021-04-23 09:30 | NUR ---
PATIENT'S , CALEB, CALLED AND UPDATED ON PATIENT STATUS. CODE WORD ESTABLISHED.
--- NOTE | 2021-04-23 10:10 | NUR ---
Update on conversation facilitated with the principals Anoop. I received a voice message from him indicating that legal action would be pursued if we refused to incoporate Ivermectin into the patients treatment and recovery plan. I responded to the voicemail, and provided non-confrontational education to Anoop about the drugs ambiguous status. I explained that Ivermectin has not been approved by the FDA for emergency application in the treatment of COVID-19, that according to [employer], one of its manufactureres, no scientific basis for a potential therapeutic effect against the disease has been established, no meaningful evidence for clinical efficacy in infected patients has been credibly demonstrated, and we have a gross lack of safety data in the majority of pre-clinical studies. I also told him that there was a possibility that using the drug in her unstable condition could adversely impact her rehabilitation. Further, I explained to him that under the circumstances, our intensivists are not in a position to administer Ivermectin as part of her recovery strategy. He expressed understanding. Thank you for this consult. Jack Berger ThD
--- NOTE | 2021-04-23 13:20 | NUR ---
PATIENT AFEBRILE. TOF 4/4. BIS 50S TO 60S. PRN ATIVAN GIVEN PROPOFOL ALREADY AT 60 MCG/ KG/ MINUTE. EYES TAPED SHUT TO PROTECT EYE LIDS SLIGHTLY OPENED. HR 60S TO 90S. SBP 80S TO 130S. FIO2 DOWN FROM 100% TO 70%. DR. KAY STATED TO KEEP SATS 86% AND GREATER. PATIENT HAD COMPLETE BED BATH. WILL CONTINUE TO MONITOR.
--- NOTE | 2021-04-23 16:10 | NUR ---
PATIENT HAS TEMP OF 99.5 DEGREES FAHRENHEIT. BIS IN THE 40S. TOF 4/4. LUNGS CLEAR IN UPPER LOBES AND DIMINISHED IN LOWER LOBES. HR IN THE 80S. SBP 80S TO 90S. WILL CONTINUE TO MONITOR.
--- NOTE | 2021-04-23 18:56 | NUR ---
SHIFT SUMMARY PATIENT REMAINED INTUBATED, SEDATED AND PARALYZED. BIS AND TOF MONITORED THROUGHOUT SHIFT. TMAX OF 99.5 DEGREES FAHRENHEIT. PATIENT ON AC 24, TV 350, PEEP 17 AND FIO2 HAS BEEN DECREASED FROM 100% FIO2 TO 70% FIO2. NO SPUTUM SUCTIONED FROM ETT DURING SHIFT. PATIENT REMAINED SR TO ST, HR 60S TO LOW 100S. SBP RANGED FROM 80S TO 160S. PATIENT OFF LEVOPHED MOST OF SHIFT BUT DID HAVE TO BE PLACED ON LEVOPHED AT 1 MCG/ MINUTE AT END OF SHIFT TO KEEP MAPS 65 AND GREATER. PULSES REMAINED DOPPLER IN FEET; FEET REMAINED COOL AND PALE. TF REMAINED AT GOAL RATE. PRN SUPPOSITORY GIVEN THIS SHIFT. NO BM THIS SHIFT. ALLRED DRAINED 650 MLS OF YELLOW/ PINK, FROTHY URINE. NO CHANGE IN SKIN. PATIENT REPOSITIONED Q2H. FENTANYL REMAINED AT 50 MCG/ HOUR, PROPOFOL AT 60 MCG/ KG/ MINUTE, NIMBEX REMAINED AT 2.5 MCG/ KG/ MINUTE, AND NS TKO X 2. ZOSYN AND VANCO ADDED TO EMAR THIS SHIFT. PATIENT UNPRONED AROUND 1300. PATIENT RECEIVED COMPLETE BED BATH THIS SHIFT. PATIENT APPEARS WITHOUT DISCOMFORT OR DISTRESS. REPORT WILL BE GIVEN TO ASSUMING SIGN WRITER LETTERER OR PAINTER NURSE SHORTLY.
--- NOTE | 2021-04-23 21:00 | NUR ---
DR KAY UPDATED WITH VENT SETTINGS AND VS. NO NEW ORDERS.
[2021-04-24 03:55] LABS: BASOPHILS ABSOLUTE AUTO 0.15 K/mm3 (0.00-0.23); BASOPHILS PERCENT AUTO 1 % (0-2); EOSINOPHILS PERCENT AUTO 0 % (0-6); Hematocrit 36.6 % (33.0-51.0); Hemoglobin 11.3 g/dL (11.5-16.0); IMMATURE GRAN ABSOLUTE AUTO 1.18 K/mm3 (0.00-0.10); IMMATURE GRAN PERCENT AUTO 6 % (0-1); LYMPHOCYTES ABSOLUTE AUTO 0.97 K/mm3 (0.84-5.20); LYMPHOCYTES PERCENT AUTO 5 % (21-46); MONOCYTES ABSOLUTE AUTO 0.98 K/mm3 (0.16-1.47); MONOCYTES PERCENT AUTO 5 % (4-13); Mean Corpuscular HGB 28.9 pg (26.0-34.0); Mean Corpuscular HGB Conc 30.9 g/dL (31.5-36.5); Mean Platelet Volume 10.5 fL (9.1-12.4); NEUTROPHILS ABSOLUTE AUTO 16.28 K/mm3 (1.96-9.15); NEUTROPHILS PERCENT AUTO 83 % (41-73); Platelet Count 356 K/mm3 (150-400); RDW Coefficient Variation 13.8 % (11.7-14.2); RDW Standard Deviation 47.6 fL (35.1-46.3); Red Blood Cell Count 3.91 M/mm3 (3.80-5.20); White Blood Cell Count 19.56 K/mm3 (4.00-11.30)
[2021-04-24 03:57] LABS: Mean Corpuscular Volume 94 fL (80-100)
[2021-04-24 04:17] LABS: Alanine Aminotransfer (ALT/SGP 57 U/L (12-78); Albumin, Blood 1.9 g/dL (3.4-5.0); Albumin/Globulin Ratio 0.4 (0.8-1.8); Alk Phos 61 U/L (50-136); Anion Gap 4 mmol/L (6-16); Aspartate Aminotrans (AST/SGOT 28 U/L (12-37); Bilirubin, Total 0.4 mg/dL (0.1-1.0); Blood Urea Nitrogen 24 mg/dL (8-24); Bun/Creatinine Ratio 47.4 (12.0-20.0); CO2, Blood 30 mmol/L (21-32); Calcium, Blood 8.6 mg/dL (8.5-10.1); Chloride, Blood 103 mmol/L (98-108); Creatinine, Blood 0.51 mg/dL (0.40-1.00); Globulin, Blood 5.3 g/dL (2.2-4.0); Glomerular Filtration Rate >60 (60-); Glucose, Blood 183 mg/dL (70-99); Magnesium, Blood 2.6 mg/dL (1.6-2.4); Phosphorus, Blood 3.1 mg/dL (2.5-4.9); Potassium, Blood 4.8 mmol/L (3.5-5.5); Sodium, Blood 137 mmol/L (136-145); Total Protein, Blood 7.2 g/dL (6.4-8.2)
--- NOTE | 2021-04-24 06:11 | NUR ---
SHIFT SUMMARY PT HAS BEEN PRONED SINCE 2015 AND TOLERATING WELL. NO SIGNIFICANT CHANGES NOTED. LEVOPHED IS OFF AND BP WNL. BIS RANGING 30-40'S AND TO4 2/4 TO 3/4 ON NIMBEX AT 2.5MCG. WILL CONTINUE TO MONITOR AND REPORT TO ONCOMING SHIFT.
--- NOTE | 2021-04-24 08:30 | NUR ---
INITIAL ASSESSMENT PATIENT INTUBATED, SEDATED AND PARALYZED. BIS IN THE 40S. TOF 0/4; NIMBEX DECREASED. PATIENT AFEBRILE. NO SIGNS OF PAIN NOTED. PATIENT ON AC/ VC+ 24, TV 355, PEEP 17, TI 0.98, FIO2 60%. LUNGS COARSE AND DIMINISHED THROUGHOUT. NO SPUTUM NOTED WITH ETT SUCTIONING THIS AM. PATIENT IN SR, HR 60S TO 90S. SBP 140S TO 160S. PULSES DOPPLER IN BILAT FEET. TF INFUSING AT GOAL RATE. DATE OF LAST BM UNKNOWN. PRN MOM GIVEN THIS AM. ALLRED DRAINING PINK/ YELLOW, FROTHY URINE. PATIENT ON MENSTRUAL CYCLE. SCATTERED BRUISES NOTED T/O. FENTANYL AT 50 MCG/ HOUR, PROPOFOL AT 60 MCG/ KG/ MINUTE, NIMBEX DECREASED TO 2 MCG/ KG/ MINUTE FROM 2.5, NS TKO. WILL CONTINUE TO MONITOR PATIENT FREQUENTLY THROUGHOUT SHIFT.
--- NOTE | 2021-04-24 10:30 | NUR ---
DR. KAY UPDATED ON PATIENT STATUS. INFORMED THAT LACTIC ACID 2.6 THIS AM AND DECREASED TO 2.1 AT 0845 THIS AM. STATED NO SEDATION VACATION THIS SHIFT. NO OTHER ORDERS OBTAINED AT THIS TIME.
--- NOTE | 2021-04-24 12:10 | NUR ---
PATIENT AFEBRILE. HR 70S TO 90S. SBP 160 TO 180S. AC 24, TV 355, PEEP 17 AND 60% FIO2.
[2021-04-24 13:32] LABS: Vancomycin, Trough 8.8 ug/mL (5.0-10.0)
--- NOTE | 2021-04-24 16:00 | NUR ---
PATIENT AFEBRILE. HR 80S TO 90S. SBP 150S TO 160S. VENT SETTINGS REMAIN THE SAME.
--- NOTE | 2021-04-24 16:14 | NUR ---
PT'S BROWN PURSE, BLACK FOLDER AND CELL PHONE ARE SENT HOME WITH S/O PER REQUEST OF FAMILY, MEDICAL SERVICES ASSISTANT WALKED BELONGINGS TO FAMILY
--- NOTE | 2021-04-24 19:25 | NUR ---
SHIFT SUMMARY PATIENT REMAINED INTUBATED, SEDATED AND PARALYZED. PATIENT REMAINED AFEBRILE. FIO2 RANGED FROM 70 TO 100%. PATIENT UNPRONED AROUND 1300. VITALS SIGNS STABLE. PATIENT HYPERTENSIVE AT TIMES. PRN HYDRALAZINE AND LABETALOL GIVEN. NO BM THIS SHIFT. PRN MOM GIVEN. TF REMAINED AT GOAL RATE. ALLRED DRAINED ADEQUATE AMOUNT OF URINE. NO CHANGE TO SKIN. PROPOFOL AT 60 MCG/ KG/ MINUTE, NIMBEX AT 2 MCG/ KG/ MINUTE. FAMILY CAME TO SEE PATIENT FROM OUTSIDE WINDOW. REPORT GIVEN TO ONCOMING GLASS INSTALLER NURSE.
[2021-04-25 03:29] LABS: BASOPHILS ABSOLUTE AUTO 0.11 K/mm3 (0.00-0.23); BASOPHILS PERCENT AUTO 1 % (0-2); EOSINOPHILS ABSOLUTE AUTO 0.02 K/mm3 (0.00-0.68); EOSINOPHILS PERCENT AUTO 0 % (0-6); Hematocrit 32.4 % (33.0-51.0); Hemoglobin 10.2 g/dL (11.5-16.0); IMMATURE GRAN ABSOLUTE AUTO 1.04 K/mm3 (0.00-0.10); IMMATURE GRAN PERCENT AUTO 7 % (0-1); LYMPHOCYTES ABSOLUTE AUTO 1.08 K/mm3 (0.84-5.20); LYMPHOCYTES PERCENT AUTO 7 % (21-46); MONOCYTES ABSOLUTE AUTO 0.92 K/mm3 (0.16-1.47); MONOCYTES PERCENT AUTO 6 % (4-13); Mean Corpuscular HGB Conc 31.5 g/dL (31.5-36.5); Mean Corpuscular Volume 92 fL (80-100); Mean Platelet Volume 10.2 fL (9.1-12.4); NEUTROPHILS ABSOLUTE AUTO 12.49 K/mm3 (1.96-9.15); NEUTROPHILS PERCENT AUTO 80 % (41-73); Platelet Count 337 K/mm3 (150-400); RDW Coefficient Variation 13.6 % (11.7-14.2); RDW Standard Deviation 46.5 fL (35.1-46.3); Red Blood Cell Count 3.52 M/mm3 (3.80-5.20); White Blood Cell Count 15.66 K/mm3 (4.00-11.30)
[2021-04-25 03:44] LABS: Albumin, Blood 1.6 g/dL (3.4-5.0); Anion Gap 1 mmol/L (6-16); Blood Urea Nitrogen 21 mg/dL (8-24); Bun/Creatinine Ratio 52.2 (12.0-20.0); CO2, Blood 35 mmol/L (21-32); Calcium, Blood 8.1 mg/dL (8.5-10.1); Chloride, Blood 101 mmol/L (98-108); Glomerular Filtration Rate >60 (60-); Glucose, Blood 167 mg/dL (70-99); Phosphorus, Blood 2.5 mg/dL (2.5-4.9); Potassium, Blood 5.1 mmol/L (3.5-5.5); Sodium, Blood 137 mmol/L (136-145)
[2021-04-25 03:47] LABS: BASOPHILS PERCENT MAN 0 % (0-2); EOSINOPHILS PERCENT MAN 0 % (0-6); LYMPHOCYTES ABSOLUTE MAN 1.09 K/mm3 (0.84-5.20); LYMPHOCYTES PERCENT MAN 7 % (21-46); MONOCYTES ABSOLUTE MAN 0.62 K/mm3 (0.16-1.47); MONOCYTES PERCENT MAN 4 % (4-13); MYELOCYTE ABSOLUTE MAN 0.31 K/mm3 (0.00-0.00); MYELOCYTE PERCENT MAN 2 % (0-0); NEUTROPHILS ABSOLUTE MAN 13.62 K/mm3 (1.96-9.15); SEG NEUTROPHILS PERCENT MAN 87 % (41-73); TOTAL CELLS COUNTED 100
--- NOTE | 2021-04-25 06:45 | NUR ---
SHIFT SUMMARY PT REMAINS STABLE ON CURRENT REGIMEN. PT HAS BEEN PRONED SINCE 1999, FIO2 DECREASED TO 65%. NO OTHER SIGNIFICANT CHANGES, WILL REPORT TO ONCOMING SHIFT.
--- NOTE | 2021-04-25 07:51 | NUR ---
ASSESSMENT- PT SEDATED WITH PROPOFOL AT 60 MCG/KG/MIN AND FENTANYL AT 50 MCG/HR. NO S/S PAIN. PARALYZED WITH NIMBEX AT 2 MCG/KG/MIN, TOF 4/4, NO SPONTANEOUS MOVEMENT SEEN. PERRL. ORALLY INTUBATED, TUBE SECURE. TOLERATING VENT SETTINGS. LUNGS CLEAR WITH FEW EXP WHEEZES RIGHT SIDE. NSR. BP STABLE. NS TKO. POWER GLIDES BILATERAL ARMS DI. RIGHT AC PIV DI. TUBE FEEDING PIVOT AT GOAL 20 CC/HR VIA OGT, ABDOMEN SOFT, HYPOACTIVE BOWEL SOUNDS. UO VIA ALLRED, CLOUDY YELLOW. ANASARCA 2+.
--- NOTE | 2021-04-25 07:59 | NUR ---
DR. STEVEN HERE-ASSESSED PT. VENT CHANGES DECREASED TO 50% AND TV 300. SATURATIONS STABLE.
--- NOTE | 2021-04-25 09:44 | NUR ---
REPOSITIONED PRONE, DECREASED SATURATIONS TO 81%, NEEDED TO INCREASE FIO2 BACK TO 65% WITH IMPROVEMENT
--- NOTE | 2021-04-25 10:38 | NUR ---
BP ELEVATED, RESPONDED WITH LABETOLOL IV, BIS 50'S
--- NOTE | 2021-04-25 13:09 | NUR ---
NIMBEX D/C, PT RESTLESS, WITH DECREASED SATURATIONS TO 88%. RX WITH FENTANYL IVPUSH AND GTT INCREASED PER ORDERS.
--- NOTE | 2021-04-25 15:05 | NUR ---
PT TURNED TO LEFT SIDE, EPISODE OF DESATURATION WITH LONGER RECOVERY, NEED TO INCREASE TO 100%, DESATS TO 60'S WITH MOVEMENT. NOW 96% ON FIO2 100%
--- NOTE | 2021-04-25 16:13 | NUR ---
FAMILY OUTSIDE WINDOW. ABLE TO USE PHONE TO TALK AT PT. VSS AT REST. DOES DESAT WITH ANY MOVEMENT, COUGHING
--- NOTE | 2021-04-25 18:16 | NUR ---
HAS NOT HAD ANY FURTHER EPISODES OF DESATURATIONS. TOLERATING VENT, VSS. PROPOFOL AT 70 MCG/KG/MIN FOR SEDATION, BIS MONITORING ON. PARALYTIC REMAINS OFF. REPOSITIONED. BILATERAL WRIST RESTRAINTS FOR SAFETY. CONTINUE TO MONITOR
[2021-04-26 05:07] LABS: Hematocrit 30.8 % (33.0-51.0); Hemoglobin 9.4 g/dL (11.5-16.0); Mean Corpuscular HGB 28.6 pg (26.0-34.0); Mean Corpuscular HGB Conc 30.5 g/dL (31.5-36.5); Mean Corpuscular Volume 94 fL (80-100); Mean Platelet Volume 10.7 fL (9.1-12.4); Platelet Count 325 K/mm3 (150-400); RDW Coefficient Variation 13.6 % (11.7-14.2); RDW Standard Deviation 46.5 fL (35.1-46.3); Red Blood Cell Count 3.29 M/mm3 (3.80-5.20); White Blood Cell Count 20.57 K/mm3 (4.00-11.30)
[2021-04-26 05:33] LABS: Albumin, Blood 1.6 g/dL (3.4-5.0); Anion Gap 3 mmol/L (6-16); Blood Urea Nitrogen 26 mg/dL (8-24); Bun/Creatinine Ratio 66.3 (12.0-20.0); CO2, Blood 35 mmol/L (21-32); Calcium, Blood 7.1 mg/dL (8.5-10.1); Chloride, Blood 97 mmol/L (98-108); Creatinine, Blood 0.39 mg/dL (0.40-1.00); Glomerular Filtration Rate >60 (60-); Glucose, Blood 107 mg/dL (70-99); Potassium, Blood 3.6 mmol/L (3.5-5.5); Sodium, Blood 135 mmol/L (136-145)
--- NOTE | 2021-04-26 06:40 | NUR ---
PT REMAINS PRONED OVERNIGHT. SHE REQUIRED INCREASED SEDATION FOR VENT TOLERANCE WHILE PRONED. NEW PG IS PLACED IN R ARM AND PT COULD BENEFIT FROM PICC PLACEMENT. NO OTHER SIGNIFICANT CHANGES NOTED. WILL CONTINUE TO MONITOR AND REPORT TO ONCOMING SHIFT.
[2021-04-26 06:42] LABS: BAND PERCENT MAN 1 % (0-8); BASOPHILS PERCENT MAN 0 % (0-2); EOSINOPHILS ABSOLUTE MAN 0.82 K/mm3 (0.00-0.68); EOSINOPHILS PERCENT MAN 4 % (0-6); LYMPHOCYTES ABSOLUTE MAN 1.85 K/mm3 (0.84-5.20); LYMPHOCYTES PERCENT MAN 9 % (21-46); MONOCYTES PERCENT MAN 1 % (4-13); MYELOCYTE PERCENT MAN 1 % (0-0); NEUTROPHILS ABSOLUTE MAN 17.48 K/mm3 (1.96-9.15); SEG NEUTROPHILS PERCENT MAN 84 % (41-73); TOTAL CELLS COUNTED 100
--- NOTE | 2021-04-26 09:00 | NUR ---
PT TREATED WITH TYLENOL FOR TEMP OF 100.1 WILL REASSESS
--- NOTE | 2021-04-26 10:15 | NUR ---
CONTINUED HYPOTENSION NOTED, LEVOPHED DRIP RESTARTED @ 5ML/HR. PT REMAINS PRONE, LS COARSE T/O. RT TO ROOM TO INCREASE VT 400 WITH FIO2 100% WITH SPO2 OF 90%. PT REQUIRED ATIVAN FOR CONTINUED SEDATION.
[2021-04-26 11:42] LABS: Base Excess Venous 15.3 mmol/L; Bicarbonate Venous 37.2 mmol/L (24.0-30.0); pH Blood Venous 7.46 (7.34-7.37)
--- NOTE | 2021-04-26 17:05 | NUR ---
PT HAS BEEN POSITIONED FROM PRONE TO SUPINE THIS SHIFT. PT DID EXPERIENCE SOME HYPOTENSION THIS AM WHICH RESULTED IN NEED TO BEGIN LEVOPHED DRIP WHICH IS CURRENTLY INFUSING AT 4MCG/HR AT THIS TIME. PT ALSO REQUIRED INCREASED AMOUNTS OF SEDATION, AFTER [address] STEVEN ORDERED TO BEGIN PRECEDEX DRIP WHICH IS CURRENTLY INFUSING AT 0.2. VENT SETTINGS 400/14/75 OF THE TIME OF THIS NOTE. PROPOFOL 70MCG/HR. PT HAS ALSO RECIEVED VANCOMYCIN AND ZOSYN THIS SHIFT. PT APPEARS TO BE WELL SEDATED AT THIS TIME AND TOLERATING THE VENT WELL. PERRL, 2MM PUPILS. RESTRAINTS REMAIN IN PLACE. VSS.
[2021-04-27 04:09] LABS: Hematocrit 29.6 % (33.0-51.0); Hemoglobin 9.4 g/dL (11.5-16.0); Mean Corpuscular HGB Conc 31.8 g/dL (31.5-36.5); Mean Corpuscular Volume 91 fL (80-100); Mean Platelet Volume 10.7 fL (9.1-12.4); Platelet Count 357 K/mm3 (150-400); RDW Coefficient Variation 13.6 % (11.7-14.2); RDW Standard Deviation 45.9 fL (35.1-46.3); Red Blood Cell Count 3.24 M/mm3 (3.80-5.20); White Blood Cell Count 15.98 K/mm3 (4.00-11.30)
[2021-04-27 04:24] LABS: Albumin, Blood 1.6 g/dL (3.4-5.0); Blood Urea Nitrogen 25 mg/dL (8-24); CO2, Blood 39 mmol/L (21-32); Calcium, Blood 8.5 mg/dL (8.5-10.1); Creatinine, Blood 0.48 mg/dL (0.40-1.00); Glomerular Filtration Rate >60 (60-); Glucose, Blood 128 mg/dL (70-99); Phosphorus, Blood 3.5 mg/dL (2.5-4.9)
[2021-04-27 04:42] LABS: Anion Gap 2 mmol/L (6-16); Chloride, Blood 103 mmol/L (98-108); Potassium, Blood 3.7 mmol/L (3.5-5.5); Sodium, Blood 144 mmol/L (136-145)
[2021-04-27 05:41] LABS: BAND PERCENT MAN 1 % (0-8); BASOPHILS PERCENT MAN 0 % (0-2); EOSINOPHILS ABSOLUTE MAN 0.31 K/mm3 (0.00-0.68); EOSINOPHILS PERCENT MAN 2 % (0-6); LYMPHOCYTES ABSOLUTE MAN 1.27 K/mm3 (0.84-5.20); LYMPHOCYTES PERCENT MAN 8 % (21-46); METAMYELOCYTE ABSOLUTE MAN 0.15 K/mm3 (0.00-0.00); METAMYELOCYTE PERCENT MAN 1 % (0-0); MONOCYTES ABSOLUTE MAN 0.95 K/mm3 (0.16-1.47); MONOCYTES PERCENT MAN 6 % (4-13); MYELOCYTE ABSOLUTE MAN 0.15 K/mm3 (0.00-0.00); MYELOCYTE PERCENT MAN 1 % (0-0); SEG NEUTROPHILS PERCENT MAN 81 % (41-73); TOTAL CELLS COUNTED 100
--- NOTE | 2021-04-27 06:11 | NUR ---
PT REMAINS IN PRONE POSITION OVERNIGHT. FIO2 WAS INITIALLY TITRATED UP TO 90% AFTER PRONING, BUT HAS SINCE BEEN TITRATED DOWN TO 85%. LS CLEAR/DIM, COARSE AT TIMES WITH OCCASIONAL THICK BOSE SPUTUM SX FROM ETT. PT IS COMFORTABLY SEDATED WITH PROPOFOL AND PRECEDEX GTTS, HOWEVER PRECEDEX IS TITRATED TO OFF DUE TO BRADYCARDIA.. RASS -3 TO -4. PT HAS HIGH RESIDUALS SO TF IS HELD FOR THE BETTER PART OF THE SHIFT. FINALLY RESTARTED AT 1/2 THE GOAL RATE. WILL CONTINUE TO MONITOR AND REPORT TO ONCOMING SHIFT.
--- NOTE | 2021-04-27 07:00 | NUR ---
PT CARE ASSUMED AFTER REPORT FROM MOHS SURGEON. PT PRONE, VENTED, SEDATED.
--- NOTE | 2021-04-27 12:02 | NUR ---
PERFORMED PT CARE ON BACK WHILE PT WAS PRONE. FINISHED CARE ON FRONT WHEN PT WAS TURNED.
[2021-04-28 00:31] LABS: Vancomycin, Trough 9.1 ug/mL (5.0-10.0)
[2021-04-28 04:10] LABS: Hemoglobin 9.3 g/dL (11.5-16.0); Mean Corpuscular HGB 28.8 pg (26.0-34.0); Mean Corpuscular Volume 93 fL (80-100); Mean Platelet Volume 10.6 fL (9.1-12.4); Platelet Count 385 K/mm3 (150-400); RDW Coefficient Variation 13.8 % (11.7-14.2); RDW Standard Deviation 46.6 fL (35.1-46.3); Red Blood Cell Count 3.23 M/mm3 (3.80-5.20); White Blood Cell Count 18.17 K/mm3 (4.00-11.30)
[2021-04-28 04:30] LABS: Albumin, Blood 1.6 g/dL (3.4-5.0); Anion Gap 1 mmol/L (6-16); Blood Urea Nitrogen 20 mg/dL (8-24); CO2, Blood 36 mmol/L (21-32); Calcium, Blood 8.4 mg/dL (8.5-10.1); Chloride, Blood 104 mmol/L (98-108); Creatinine, Blood 0.44 mg/dL (0.40-1.00); Glomerular Filtration Rate >60 (60-); Glucose, Blood 105 mg/dL (70-99); Phosphorus, Blood 3.1 mg/dL (2.5-4.9); Potassium, Blood 3.6 mmol/L (3.5-5.5); Sodium, Blood 141 mmol/L (136-145)
[2021-04-28 05:42] LABS: BAND PERCENT MAN 1 % (0-8); BASOPHILS PERCENT MAN 0 % (0-2); EOSINOPHILS ABSOLUTE MAN 0.72 K/mm3 (0.00-0.68); EOSINOPHILS PERCENT MAN 4 % (0-6); LYMPHOCYTES ABSOLUTE MAN 2.54 K/mm3 (0.84-5.20); LYMPHOCYTES PERCENT MAN 14 % (21-46); METAMYELOCYTE ABSOLUTE MAN 0.18 K/mm3 (0.00-0.00); METAMYELOCYTE PERCENT MAN 1 % (0-0); MONOCYTES ABSOLUTE MAN 0.54 K/mm3 (0.16-1.47); MONOCYTES PERCENT MAN 3 % (4-13); MYELOCYTE ABSOLUTE MAN 0.72 K/mm3 (0.00-0.00); MYELOCYTE PERCENT MAN 4 % (0-0); NEUTROPHILS ABSOLUTE MAN 13.44 K/mm3 (1.96-9.15); SEG NEUTROPHILS PERCENT MAN 73 % (41-73); TOTAL CELLS COUNTED 100
--- NOTE | 2021-04-28 06:43 | NUR ---
PT TURNED PRONE AT 2100. PT WAS MED W ATIVAN AND PROPOFOL WAS INCREASED FOR PT AGITATION JUST PRIOR. PT WAS COUGHING AND HAD DESAT TO LOW 80'S. SEE FLOWSHEET. PT NOTED TO COME UP OUT OF SEDATION VERY QUICKLY, WHEN PUMPS ON HOLD FOR LAB DRAW, TRIES TO MOVE ARMS AND TURN HEAD. PT WAS MED W ATIVAN 2MG X3. CONT PRONE POSITION. TF W LOW RESIDUALS, AND RETURNED TO GOAL RATE OF 20ML/H. CONT W WRIST RESTRAINTS.
--- NOTE | 2021-04-28 09:33 | NUR ---
PT WITH INCREASE IN AGGITATION, PULLING AT LEFT RESTRAINT, RR UP TO 30. PT MEDICATED WITH LORAZEPAM 2MG IV WITH GOOD RELIEF. TF TUBING CHANGED, NEW FENTANYL PARACHUTE PANEL JOINER VIAL PLACED.
--- NOTE | 2021-04-28 10:24 | NUR ---
PT COUGHING, NO SECRETIONS NOTED WITH ETT SUCTION. SATS DOWN TO 77%. RT AT BEDSIDE, PT MEDICATED WITH LORAZEPAM 2MG IV WITH INCREASE IN SATS TO 90%.
--- NOTE | 2021-04-28 11:00 | NUR ---
PTS UPDATED ON PT CURRENT CONDITION.
--- NOTE | 2021-04-28 12:56 | NUR ---
PT UN-PRONED. PRE-MEDICATED WITH ATIVAN 2MG IV. PT TOLERATED WELL.
--- NOTE | 2021-04-28 16:16 | NUR ---
FI02 CURRENTLY 90%. PT RESTING QUIETLY, NO ACUTE DISTRESS.
--- NOTE | 2021-04-28 18:26 | NUR ---
MAP<60 WITH CONSECUTIVE BP, LEVOPOHED RESTARTED AT 1MCG/MIN
--- NOTE | 2021-04-28 18:34 | NUR ---
PT WITH NITIN CARDIA AT 38BPM AFTER BRIEF PICC LINE FLUSH. PT BACK TO SR WITHIN 30SEC. DR BERNADETTE CLARK.
--- NOTE | 2021-04-28 23:55 | NUR ---
PATIENT REMAINS INTUBATED AND SEDATED PRONED AT 2039. PROPOFOL 55MCG AND FENTANYL 100 MCG FOR SEDATION, LEVOPHED FOR HYPOTENSION. AT 2199 PATIENT AWAKE ATTEMPTING TO SIT UP, NOT FOLLOWING DIRECTIONS. PROPOFOL INCREASED TO 65 MCG AND ATIVAN IV GIVEN. FIO2 INCREASED TO 100% BILAT WRIST RESTRAINTS CONTINUE DUE TO RISK FOR SELF EXTUBATION DUE TO UNPREDICTABLE SEDATION AND BEHAVIOR. OG IN PLACE WITH TUBE FEEDING PIVIT 1.5 AT GOAL RATE OF 20 CC/HR.
[2021-04-29 05:15] LABS: Hemoglobin 10.2 g/dL (11.5-16.0); Mean Corpuscular HGB 29.1 pg (26.0-34.0); Mean Corpuscular HGB Conc 31.9 g/dL (31.5-36.5); Mean Corpuscular Volume 91 fL (80-100); Mean Platelet Volume 10.5 fL (9.1-12.4); Platelet Count 412 K/mm3 (150-400); RDW Coefficient Variation 13.7 % (11.7-14.2); RDW Standard Deviation 45.9 fL (35.1-46.3); White Blood Cell Count 17.61 K/mm3 (4.00-11.30)
[2021-04-29 05:39] LABS: Albumin, Blood 1.7 g/dL (3.4-5.0); Anion Gap 4 mmol/L (6-16); Blood Urea Nitrogen 23 mg/dL (8-24); Bun/Creatinine Ratio 46.3 (12.0-20.0); CO2, Blood 35 mmol/L (21-32); Calcium, Blood 8.7 mg/dL (8.5-10.1); Chloride, Blood 98 mmol/L (98-108); Glomerular Filtration Rate >60 (60-); Glucose, Blood 116 mg/dL (70-99); Phosphorus, Blood 3.9 mg/dL (2.5-4.9); Potassium, Blood 3.3 mmol/L (3.5-5.5); Sodium, Blood 137 mmol/L (136-145)
[2021-04-29 05:53] LABS: BAND PERCENT MAN 1 % (0-8); BASOPHILS PERCENT MAN 0 % (0-2); EOSINOPHILS ABSOLUTE MAN 0.52 K/mm3 (0.00-0.68); EOSINOPHILS PERCENT MAN 3 % (0-6); LYMPHOCYTES ABSOLUTE MAN 3.52 K/mm3 (0.84-5.20); LYMPHOCYTES PERCENT MAN 20 % (21-46); MONOCYTES PERCENT MAN 0 % (4-13); NEUTROPHILS ABSOLUTE MAN 13.55 K/mm3 (1.96-9.15); SEG NEUTROPHILS PERCENT MAN 76 % (41-73); TOTAL CELLS COUNTED 100
--- NOTE | 2021-04-29 06:50 | NUR ---
PATIENT REMAINS INTUBATED AND SEDATED IN PRONE POSITION. PATIENT AWAKENS EASILY TO STIMULI, NOT FOLLOWING DIRECTIONS. FENTANYL 100 MCG, PROPOFOL 65 MCG, PRECEDEX 1 MCG. LEVOPHED 1 MCG FOR HYPOTENSION. ETT WITH VENT AC 26, TV 330, PEEP 14, FIO2 100% SUCTIONING SMALL AMT CLEAR SPUTUM. OG REMAINS IN PLACE WITH PIVOT 1.5 AT GOAL RATE OF 20 CC/HR.
--- NOTE | 2021-04-29 09:01 | NUR ---
Received report from Leslie TYSON. Patient is intubated and sedates and Proned. She has 8.0 ET and is 26 cm at teeth with vent settings of 26/330/100/14 and sats 92%. OG in place and is infusing Pivot 1.5 at 20 with 30 ml water flushes Q4.She has PICC line on JUAN PABLO and dressing intact and site WNL's and is infusing Levophed at 1 mcg/min, Propofol at 45 mcg/kg/min, NS TKO, Fentanyl 100 mcg/hr. She also has 18ga PowerGlide to JULIETTE flushed and SL'd. She has 14 Fr Arenas draining to gravity. Temp 97.7.
--- NOTE | 2021-04-29 11:30 | NUR ---
Patient has been very fragile resp. and with any movemnt or change in sedation destas quickly and then takes a while to come back up. Talked with Dr Hernandez and will start paralytic to see if helps.. VSS and remains on 3 mcg/min Levophed to maintain >[address] hernandez was in to reassess and made no vent setting chnages. Remains proned until paralyzed.
--- NOTE | 2021-04-29 14:50 | NUR ---
Patient on Rocuronium for paralystic and started at 6 ml/hr and now 9 ml/hr. Delayed un-proning until TO4 09/26 current number. Levophed remains at 3 mcg/min with systolic 100's. 95% sats on vent settings of 26/330/100/17. Patient had restraits removed at 1400.
--- NOTE | 2021-04-29 17:45 | NUR ---
Patient remains fragile with her sats and any positioning. Vent setting remains unchanged at 26/330/100/14 and sats currently 93%. Levophed at 3 mcg/min, Propofol at 45 mcg/kg/min, Fentanyl 100 mcg/hr, Rocuronium 9ml/hr. TF continue at 20 ml/hr and 30 ml water flushes Q4. Family has been by several times outside window. She still has coarse lung sounds and moderte amounts of thick secretions. Dagoberto pereira out put.
[2021-04-30 04:37] LABS: BASOPHILS ABSOLUTE AUTO 0.11 K/mm3 (0.00-0.23); BASOPHILS PERCENT AUTO 1 % (0-2); EOSINOPHILS ABSOLUTE AUTO 0.51 K/mm3 (0.00-0.68); EOSINOPHILS PERCENT AUTO 3 % (0-6); Hematocrit 33.1 % (33.0-51.0); Hemoglobin 10.3 g/dL (11.5-16.0); IMMATURE GRAN ABSOLUTE AUTO 1.31 K/mm3 (0.00-0.10); IMMATURE GRAN PERCENT AUTO 7 % (0-1); LYMPHOCYTES PERCENT AUTO 14 % (21-46); MONOCYTES ABSOLUTE AUTO 1.16 K/mm3 (0.16-1.47); MONOCYTES PERCENT AUTO 6 % (4-13); Mean Corpuscular HGB Conc 31.1 g/dL (31.5-36.5); Mean Corpuscular Volume 93 fL (80-100); Mean Platelet Volume 10.5 fL (9.1-12.4); NEUTROPHILS ABSOLUTE AUTO 12.41 K/mm3 (1.96-9.15); NEUTROPHILS PERCENT AUTO 69 % (41-73); Platelet Count 399 K/mm3 (150-400); RDW Coefficient Variation 13.6 % (11.7-14.2); RDW Standard Deviation 46.8 fL (35.1-46.3); Red Blood Cell Count 3.55 M/mm3 (3.80-5.20)
[2021-04-30 05:02] LABS: Anion Gap 4 mmol/L (6-16); Blood Urea Nitrogen 24 mg/dL (8-24); Bun/Creatinine Ratio 50.3 (12.0-20.0); CO2, Blood 32 mmol/L (21-32); Calcium, Blood 8.7 mg/dL (8.5-10.1); Chloride, Blood 102 mmol/L (98-108); Creatinine, Blood 0.48 mg/dL (0.40-1.00); Glomerular Filtration Rate >60 (60-); Glucose, Blood 133 mg/dL (70-99); Magnesium, Blood 2.5 mg/dL (1.6-2.4); Phosphorus, Blood 3.2 mg/dL (2.5-4.9); Potassium, Blood 3.6 mmol/L (3.5-5.5); Sodium, Blood 138 mmol/L (136-145)
[2021-04-30 06:51] LABS: BAND PERCENT MAN 2 % (0-8); BASOPHILS PERCENT MAN 0 % (0-2); EOSINOPHILS ABSOLUTE MAN 0.18 K/mm3 (0.00-0.68); EOSINOPHILS PERCENT MAN 1 % (0-6); LYMPHOCYTES ABSOLUTE MAN 1.99 K/mm3 (0.84-5.20); LYMPHOCYTES PERCENT MAN 11 % (21-46); METAMYELOCYTE ABSOLUTE MAN 0.18 K/mm3 (0.00-0.00); METAMYELOCYTE PERCENT MAN 1 % (0-0); MONOCYTES PERCENT MAN 5 % (4-13); MYELOCYTE ABSOLUTE MAN 0.18 K/mm3 (0.00-0.00); MYELOCYTE PERCENT MAN 1 % (0-0); NEUTROPHILS ABSOLUTE MAN 14.66 K/mm3 (1.96-9.15); SEG NEUTROPHILS PERCENT MAN 79 % (41-73); TOTAL CELLS COUNTED 100
--- NOTE | 2021-04-30 07:28 | NUR ---
SUMMARY PATIENT REMAINS INTUBATED AND SEDATED IN PRONE POSITION SEDATED WITH PROPOFOL 65, FENTANYL 100 MCG. PARALYZED WITH ROCURONIUM 10 MCG, TRAIN OF 4 4/4, BIS 30'S TO 40'S. VENT AC 26, TV 300, PEEP 14, FIO2 100% SUCTIONING SMALL AMT OF CLEAR SECRETIONS VIA ETT. OG REMAINS IN PLACE WITH PIVOT AT GOAL RATE OF 20 CC/HR.
--- NOTE | 2021-04-30 08:00 | NUR ---
LATE ENTRY: TOF 4/4 TO RIGHT WRIST
--- NOTE | 2021-04-30 13:27 | NUR ---
PT REPOSITIONED TO SUPINE WITH HOB >30. PT TOLERATED WELL. REMAINS SEDATED AND PARALIZED.
--- NOTE | 2021-04-30 15:07 | NUR ---
FIO2 DECREASED TO 85%. LEVOPHED REMAINS ON SB. PT IN NO ACUTE DISTRESS.
--- NOTE | 2021-04-30 16:11 | NUR ---
FI02 DECREASED TO 80%.
--- NOTE | 2021-04-30 16:23 | NUR ---
TOF: 4/4 RIGHT BROW
--- NOTE | 2021-04-30 18:39 | NUR ---
PT REMAINS SEDATED/PARALIZED ON VENT. PT REMAINS ON 85%FIO2 PEEP OF 14. REPORT TO BE GIVEN TO ONCOMING RN.
--- NOTE | 2021-04-30 20:00 | NUR ---
PATIENT REMAINS INTUBATED AND SEDATED. VENT AC VC+ 26, TV 300, PEEP 14, FIO2 85% BIOX CONTINUES TO DROP TO 86% FIO2 INCREASED UP TO 100% AND THEN PLACED TO PRONE POSITION, AFTER PRONING AND ADJUSTMENT OF ETT BY RT ABLE TO TITRATE FIO2 BACK TO 90%. SUCTIONING WHITE SECRETIONS VIA ETT. LUNG SOUNDS CLEAR DECREASED BASES. SEDATED WITH PROPOFOL 65 MCG, AND FENTANYL 100 MCG/HR. PARALYZED WITH ROCURONIUM 10 MCG. TRAIN OF 4 4/[address] IN [address] WITH PIVOT 1.5 AT GOAL RATE OF 20 CC/HR
--- NOTE | 2021-04-30 21:20 | NUR ---
Review of pt with staff, will look at sofa scor now that it has been over a week. Will see if advanced research programs director has dicussed cpr.
[2021-05-01 05:44] LABS: PCO2 Arterial 61.8 mmHg (35-45); PO2 Arterial 62.8 mmHg (80-100); pH Blood Arterial 7.39 (7.35-7.45)
[2021-05-01 06:12] LABS: Hematocrit 30.2 % (33.0-51.0); Hemoglobin 9.2 g/dL (11.5-16.0); Mean Corpuscular HGB 28.6 pg (26.0-34.0); Mean Corpuscular HGB Conc 30.5 g/dL (31.5-36.5); Mean Corpuscular Volume 94 fL (80-100); Mean Platelet Volume 10.2 fL (9.1-12.4); Platelet Count 367 K/mm3 (150-400); RDW Coefficient Variation 13.7 % (11.7-14.2); RDW Standard Deviation 47.1 fL (35.1-46.3); Red Blood Cell Count 3.22 M/mm3 (3.80-5.20); White Blood Cell Count 15.38 K/mm3 (4.00-11.30)
--- NOTE | 2021-05-01 06:30 | NUR ---
SUMMARY PATIENT REMAINS INTUBATED AND SEDATED AND IN PRONE POSITION. ZAID 10 MCG, PROPOFOL 65 MCG, FENTANYL 100 MCG. VENT AC VC+ 26, TV 300, PEEP 14, FIO2 TITRATED 90-100% T/O NIGHT. OG REMAINS IN PLACE WITH PIVOT AT GOAL RATE OF 20 CC/HR.
[2021-05-01 06:32] LABS: BAND PERCENT MAN 3 % (0-8); BASOPHILS ABSOLUTE MAN 0.15 K/mm3 (0.00-0.23); BASOPHILS PERCENT MAN 1 % (0-2); EOSINOPHILS ABSOLUTE MAN 0.61 K/mm3 (0.00-0.68); EOSINOPHILS PERCENT MAN 4 % (0-6); LYMPHOCYTES ABSOLUTE MAN 1.38 K/mm3 (0.84-5.20); LYMPHOCYTES PERCENT MAN 9 % (21-46); MONOCYTES ABSOLUTE MAN 0.46 K/mm3 (0.16-1.47); MONOCYTES PERCENT MAN 3 % (4-13); NEUTROPHILS ABSOLUTE MAN 12.76 K/mm3 (1.96-9.15); SEG NEUTROPHILS PERCENT MAN 80 % (41-73); TOTAL CELLS COUNTED 100
[2021-05-01 06:58] LABS: Anion Gap 1 mmol/L (6-16); Blood Urea Nitrogen 21 mg/dL (8-24); Bun/Creatinine Ratio 45.6 (12.0-20.0); CO2, Blood 35 mmol/L (21-32); Calcium, Blood 9.1 mg/dL (8.5-10.1); Chloride, Blood 103 mmol/L (98-108); Creatinine, Blood 0.46 mg/dL (0.40-1.00); Glomerular Filtration Rate >60 (60-); Glucose, Blood 98 mg/dL (70-99); Magnesium, Blood 2.1 mg/dL (1.6-2.4); Potassium, Blood 3.8 mmol/L (3.5-5.5); Sodium, Blood 139 mmol/L (136-145)
--- NOTE | 2021-05-01 08:35 | NUR ---
Assumed care of pt at 0700 with Margarita RN. Drips: Propofol 65 mcg/kg/min Fentanyl 100 mcg/hr Vent: 8.0 cm ETT, 26 cm at lip. ACVC 26/300/14/100%. Positioning: Prone with pillows under left hip and shoulder. Reverse trendelenberg. See shift assessment for additional details.
--- NOTE | 2021-05-01 09:54 | NUR ---
PT'S DAUGHTER NEIL CALLED REQUESTING PATIENT ADVOCATE AND SUPERVISOR TELEPHONE CLERKS CALL HER. CALLED AND LEFT MESSAGE FOR MARBELLA BENEDICT TO RETURN CALL. SPOKE WITH PATIENT ADVOCATE DELANEY VIVAR, SHE WILL RETURN CALL SOON AVAILABLE. CALLED NEIL BACK AND UPDATED HER.
[2021-05-01 10:02] LABS: PCO2 Arterial 67.2 mmHg (35-45); PO2 Arterial 55.6 mmHg (80-100); pH Blood Arterial 7.33 (7.35-7.45)
--- NOTE | 2021-05-01 10:33 | NUR ---
Pt repositioned this morning and sats dropped below 90%. Slowly trended down to 85%. Pillows removed from beneath patient. No improvement noted. Notified RT Nori. Instructed to titrate PEEP up. PEEP incrementally increased up to 20. No improvement noted. Changed pt's reposition again as this morning she was oxygenting well laying on left side. With higher PEEP, full volume was not being delivered by ventilator. Bilat breath sounds auscultated. No cuff leak. ETT in unchanged position. RT Nori at bedside. Synchronizer at bedside. PEEP decreased to 14 allowed for full volume to be delivered and improvement in SpO2 from 82%-85% noted. RT matthew ABG and this RN gave results to provider.
--- NOTE | 2021-05-01 14:29 | NUR ---
Pt placed in supine positioning from prone at 1200. Pt tolerated well. Vent settings remain ACVC 26/300/14/100%. SpO2 90% or greater.
--- NOTE | 2021-05-01 15:20 | NUR ---
Phone call to Anoop pt's spouse as a follow up call after Anoop was called by Dr. Amaya earlier today. Listened to Anoop's concerns and answered questions for him. He is interested in having a zoom meeting tomorrow afternoon at [address] Amaya, PC nurse and several family members. Anoop asked questions about options for transferring care to a different facility. Reiterated Dr. Amaya's discussion with him earlier that at this time Jacquelyn is not a candidate for ecmo. PC RN to set up a zoom meeting for 1 pm on 05/02/21. ICU hemodialysis charge nurse notified and she will let Dr. Amaya know. Per Anoop, the family members that plan to attend this zoom meeting are: Anoop [phone] Anoop [phone] Yen [phone] Noelle [phone]
--- NOTE | 2021-05-01 17:59 | NUR ---
SUMMARY Neuro: Unresponsive. Sedated with 65 mcg/kg/min propofol and 100 mcg/hr fentanyl. BIS 40-60. Paraylzed with 11 mcg/kg/min rocuronium. TOF 4/4, but compliant with ventilator. No movement noted BUE or BLE. No cough, no gag. Musculoskeletal: Mobility limited by intubation, sedation, and paralytic. Pt supine with elevated HOB. Reposition Q2H. Respiratory: 8.0 cm ETT, 26 cm ALEJANDRO. Lungs coarse t/o. Small amount of thick, green, sputum suctioned from ETT. Vent settings ACVC 26/300/14/100%. SpO2 90% or greater. Cardiac: Sinus rhtyhm per monitor, rate 82. BP stable. 1+ radial, pedal, and post tibial pulses. Trace edema BUE and BLE. Facial edema noted. Capillary refill less than 3 seconds BUE and BLE. GI: OG tube with TF at goal rate per orders. Approx 200 mL residual measured at most recent check. Reglan given. Hypoactive BT. One bowel movement today. : Arenas catheter in place, patent and draining. Good urine output this shift. Skin: Unremarkable. Repositon Q2H to prevent pressure injury. Psychosocial: Family updated by Dr Amaya and palliative care. Family visited outside window of pt's room today.
--- NOTE | 2021-05-01 20:07 | NUR ---
Assumed care. Report recieved from kassie RN. Pt in bed, paralyzed and sedated, on ventilator. Vent settings: AC/VC 26, TV300, PEEP14, Fi02 100%, Sp02 sat 92% at this time. PT has PICC in JUAN PABLO, midline IV in JULIETTE. IV pump settings: Rocuronium 11 mcg/kg/min, Propofol 65 mcg/kg/min, Fentanyl ETYMOLOGY PROFESSOR 100 mcg/hr, NS 10 ml/hr. Pt has OG tube with PIVOT 1.5 running at goal rate 20 ml/hr. Arenas catheter in place, draining ganga/yellow urine. No acute needs noted at this time, will continue to monitor.
[2021-05-02 04:15] LABS: Hematocrit 32.3 % (33.0-51.0); Hemoglobin 9.9 g/dL (11.5-16.0); Mean Corpuscular HGB 28.7 pg (26.0-34.0); Mean Corpuscular HGB Conc 30.7 g/dL (31.5-36.5); Mean Corpuscular Volume 94 fL (80-100); Mean Platelet Volume 10.6 fL (9.1-12.4); Platelet Count 394 K/mm3 (150-400); RDW Coefficient Variation 13.8 % (11.7-14.2); RDW Standard Deviation 46.6 fL (35.1-46.3); Red Blood Cell Count 3.45 M/mm3 (3.80-5.20); White Blood Cell Count 19.24 K/mm3 (4.00-11.30)
[2021-05-02 04:32] LABS: Albumin, Blood 1.9 g/dL (3.4-5.0); Anion Gap 2 mmol/L (6-16); Blood Urea Nitrogen 22 mg/dL (8-24); CO2, Blood 38 mmol/L (21-32); Calcium, Blood 8.8 mg/dL (8.5-10.1); Chloride, Blood 99 mmol/L (98-108); Creatinine, Blood 0.44 mg/dL (0.40-1.00); Glomerular Filtration Rate >60 (60-); Glucose, Blood 89 mg/dL (70-99); Phosphorus, Blood 3.1 mg/dL (2.5-4.9); Sodium, Blood 139 mmol/L (136-145)
[2021-05-02 05:48] LABS: BAND PERCENT MAN 1 % (0-8); BASOPHILS PERCENT MAN 0 % (0-2); EOSINOPHILS ABSOLUTE MAN 0.57 K/mm3 (0.00-0.68); EOSINOPHILS PERCENT MAN 3 % (0-6); LYMPHOCYTES PERCENT MAN 13 % (21-46); METAMYELOCYTE ABSOLUTE MAN 0.19 K/mm3 (0.00-0.00); METAMYELOCYTE PERCENT MAN 1 % (0-0); MONOCYTES ABSOLUTE MAN 0.76 K/mm3 (0.16-1.47); MONOCYTES PERCENT MAN 4 % (4-13); MYELOCYTE ABSOLUTE MAN 0.38 K/mm3 (0.00-0.00); MYELOCYTE PERCENT MAN 2 % (0-0); NEUTROPHILS ABSOLUTE MAN 14.81 K/mm3 (1.96-9.15); SEG NEUTROPHILS PERCENT MAN 76 % (41-73); TOTAL CELLS COUNTED 100
--- NOTE | 2021-05-02 06:13 | NUR ---
Shift summary. Pt continues on ventilator: AC/VC 26, TV 300, PEEP 14, Fi02 100%. Pt has OG tube in place, pivot 1.5 running at goal rate 20 ml/hr. Pt has PICC JUAN PABLO & powerglide JULIETTE. IV pump settings: Rocuronium 11 mcg/kg/min, Propofol 65 mcg/kg/min, Fentanyl BROODMARE BARN GROOM 100 mcg/hr, NS 10 ml/hr. Arenas catheter in place, draining ganga/yellow urine. Pt began shift with 02 sats in low 90s, after proning her sats harry to mid 90s for several hours then gradually declined to the low 90s/upper 80s. Pt current 02 sat is 89-90%. Will continue to monitor and report to oncoming RN.
--- NOTE | 2021-05-02 12:30 | NUR ---
Pt changed from prone positioning to supine positioning. Pt tolerated well. Remains on same vent settings.
--- NOTE | 2021-05-02 17:30 | NUR ---
Summary of [facility] intervention today. This am, I reviewed EMR, PC notes & received report on pt and family needs/requests from yesterday's [facility] RN. I spoke with photographic platemaker and bedside RN in ICU to prepare for zoom meeting previously planned with Family members and Dr Amaya at 1pm today. Zoom meeting occured at 1 pm for approx. one hour. Those present were me, Dr Amaya, pt's -Anoop, Sister-Yen, Kev-kf-gat-Anoop, massielNoelle. Dr spent significant amount of time outlining Jacquelyn's current condition, s/s of worsening lung function, all treatments being provided, conversations with ecmo teams in [facility] and results, including that no recommendations for any other treatments/medications/interventions received from outside hospital joiner teams. Carlotta asked Dr to list and spell all the medications that Jacquelyn was currently on, which he did. Family was allowed to express their concerns regarding events leading up to pt's stay in ICU/intubation. Some issues could not be addressed by us at this time as they did not pertain to the current concerns or ICU care. took on role of spokesperson for much of the meeting but all family members had time to ask questions and state their wishes. answered their questions and replied to their specific concerns multiple times during the zoom meeting. Family wanted consideration of a support person in Jacquelyn's room 24/7 and quoted recent legislation allowing a support person in for a disabled person who required 24/7 cg support. Jacquelyn does not fit the criteria intended for this legislation. I discussed this request with photographic platemakerAntonieta, bedside RN & Jack Berger, FIXED ROUTE BUS OPERATOR [facility]. Decision made to allow compassionate exception to visiting policy due to pt's guarded prognosis. will be allowed in to visit during visiting hours starting tomorrow. informed of this by telephone earlier and he expressed appreciation. Screeners and nursing in ICU informed and note placed on the chart for staff. Family also requested that multiple other treatments they had been researching on the internet be employed at this time under the "right to try" legislation passed in 2018. Sister Yen emailed the information on this legislation to me, which I reviewed and shared with Jack Berger. Jacquelyn's situation does not meet the criteria for the law, as outlined in link family sent me today. I informed pt's family that the emails were received, printed & shared with ICU team, Jack Berger and . All materials sent were placed on pt's chart for review. given our number and staff contacts for weekend if he would like a visit. [facility] to remain available as support to pt's family and staff.
--- NOTE | 2021-05-02 19:00 | NUR ---
ASSUMED CARE ASSUMED CARE OF PATIENT. REMAINS INTUBATED- AC/VC+ 30/300/PEEP 10. FIO2 100%. SEDATED WITH PROPOFOL AT 65MCG/KG/MIN AND FENTANYL 100MCG/HR. BIS SHOWS 38-42. ROCURONIUM INFUSING AT 11MCG/KG/MIN. TO4 IS 4/4. NO SPONTANEOUS MOVEMENT NOTED. NO SPONTANEOUS RESPIRATIONS. MONITOR SHOWS NSR, RATE 80-90s. BP STABLE. OG WITH PIVOT 1.5 AT GOAL RATE OF 20CC/HR. 30CC H20 Q4H. ALLRED PATENT AND DRAINING MAXX URINE. AT BEDSIDE. SEE SHIFT ASSESSMENT FOR FULL ASSESSMENT.
--- NOTE | 2021-05-02 19:30 | NUR ---
SUMMARY Pt had bedbath today. Afterwards, pt had difficulty maintaining oxygen saturations. Vent settings titrated by RT Nori and Dr Amaya. Unable to increase PEEP as pt is unable to receive full tidal volume with increased PEEP and this results in worsening SpO2. Chest xray obtained to r/o pneumothorax. Pt proned at 1750. Remains proned at this time. Neuro: Unresponsive. Sedated with 65 mcg/kg/min propofol and 100 mcg/hr fentanyl. BIS 40-60. Paraylzed with 11 mcg/kg/min rocuronium. TOF 4/4, but compliant with ventilator. No movement noted BUE or BLE. No cough, no gag. Musculoskeletal: Mobility limited by intubation, sedation, and paralytic. Pt prone with elevated HOB. Reposition Q2H. Respiratory: 8.0 cm ETT, 26 cm ALEJANDRO. Lungs coarse t/o. Small amount of thick, green, sputum suctioned from ETT. Vent settings ACVC 30/300/10/100%. SpO2 85% or greater. Cardiac: Sinus rhytyhm per monitor, rate 93. BP stable. 1+ radial, pedal, and post tibial pulses. Trace edema BUE and BLE. Facial edema noted. Capillary refill less than 3 seconds BUE and BLE. GI: OG tube with TF at goal rate per orders. Approx 30 mL residual measured at most recent check. Reglan given. Hypoactive BT. One bowel movement today. : Arenas catheter in place, patent and draining. Good urine output this shift. Skin: Unremarkable. Repositon Q2H to prevent pressure injury. Psychosocial: Family updated by Dr Amaya and palliative care. Family visited outside window of pt's room today. Spouse in room visiting with pt at this time, due to pt's decline in condition.
[2021-05-03 04:06] LABS: BASOPHILS ABSOLUTE AUTO 0.13 K/mm3 (0.00-0.23); BASOPHILS PERCENT AUTO 1 % (0-2); EOSINOPHILS PERCENT AUTO 3 % (0-6); Hematocrit 32.5 % (33.0-51.0); Hemoglobin 10.1 g/dL (11.5-16.0); IMMATURE GRAN ABSOLUTE AUTO 1.27 K/mm3 (0.00-0.10); IMMATURE GRAN PERCENT AUTO 6 % (0-1); LYMPHOCYTES PERCENT AUTO 15 % (21-46); MONOCYTES ABSOLUTE AUTO 1.13 K/mm3 (0.16-1.47); MONOCYTES PERCENT AUTO 5 % (4-13); Mean Corpuscular HGB 28.7 pg (26.0-34.0); Mean Corpuscular HGB Conc 31.1 g/dL (31.5-36.5); Mean Corpuscular Volume 92 fL (80-100); Mean Platelet Volume 10.4 fL (9.1-12.4); NEUTROPHILS PERCENT AUTO 71 % (41-73); NRBC ABSOLUTE 0.02 K/mm3 (0.00-0.02); NRBC Auto 0.1 /100 WBC (0.0-0.2); Platelet Count 425 K/mm3 (150-400); RDW Coefficient Variation 13.7 % (11.7-14.2); RDW Standard Deviation 46.2 fL (35.1-46.3); Red Blood Cell Count 3.52 M/mm3 (3.80-5.20); White Blood Cell Count 22.03 K/mm3 (4.00-11.30)
[2021-05-03 04:23] LABS: Anion Gap -1 mmol/L (6-16); Blood Urea Nitrogen 24 mg/dL (8-24); Bun/Creatinine Ratio 55.9 (12.0-20.0); CO2, Blood 41 mmol/L (21-32); Calcium, Blood 9.3 mg/dL (8.5-10.1); Chloride, Blood 94 mmol/L (98-108); Creatinine, Blood 0.43 mg/dL (0.40-1.00); Glomerular Filtration Rate >60 (60-); Glucose, Blood 121 mg/dL (70-99); Phosphorus, Blood 2.9 mg/dL (2.5-4.9); Potassium, Blood 3.8 mmol/L (3.5-5.5); Sodium, Blood 134 mmol/L (136-145)
--- NOTE | 2021-05-03 06:12 | NUR ---
SHIFT SUMMARY NO ACUTE CHANGES DURING NOC. REMAINS INTUBATED- VENT SETTINGS UNCHANGED. O2 SATS HAVE MOSTLY BEEN IN THE MID TO HIGH 80s. SEDATED WITH PROPOFOL AT 65MCG/KG/MIN AND FENTANYL AT 100MCG/HR. BIS BETWEEN 35-45 T/O NOC. ROCURONIUM INFUSING AT 11MCG/KG/MIN. TO4 4/4. NO SPONTANEOUS MOVEMENT OR RESPIRATIONS NOTED. VSS. AFEBRILE. OG WITH PIVOT 1.5 AT GOAL RATE OF 20CC/HR. ALLRED PATENT AND DRAINING MAXX URINE. PT HAS BEEN PRONED T/O SHIFT. WILL REPORT TO ONCOMING RN WHEN AVAILABLE.
[2021-05-03 06:17] LABS: BASOPHILS ABSOLUTE MAN 0.22 K/mm3 (0.00-0.23); BASOPHILS PERCENT MAN 1 % (0-2); EOSINOPHILS ABSOLUTE MAN 0.66 K/mm3 (0.00-0.68); EOSINOPHILS PERCENT MAN 3 % (0-6); LYMPHOCYTES ABSOLUTE MAN 3.74 K/mm3 (0.84-5.20); LYMPHOCYTES PERCENT MAN 17 % (21-46); MONOCYTES PERCENT MAN 5 % (4-13); SEG NEUTROPHILS PERCENT MAN 74 % (41-73); TOTAL CELLS COUNTED 100
--- NOTE | 2021-05-03 09:40 | NUR ---
Called to ICU per nursing to be present at bedside with pt's spouse, Anoop. Pt sats dropped earlier this morning prompting staff to contact Anoop to come in. Family members are present outside the window. Entered room with Dr. Elizabeth to speak with pt's spouse. Jacquelyn remains on the ventilator at this time. Dr. Elizabeth explained to Anoop Valladares's current condition and poor prognosis. Anoop states that Jacquelyn is a fighter and that she would want everything to be done. He wants to honor her wishes at this time and continue to stay the course for continuing care. Anoop asked about the possibility of other treatments and Dr. Elizabeth said he would follow up on this. Once Dr. Elizabeth left the room, this telegraphic typewriter installer stayed behind to answer any questions that Anoop had. Anoop asked about a trach and what that would look like. Asked Anoop to consider what Jacquelyn would want in terms of quality of life. Would she want to remain alive on life support if she was bed bound or had to remain on a ventilator local company intermodal truck driver? Anoop said he needed to consider this and talk to other family members. Also asked Anoop to think about Jacquelyn's code status. Explained that DNR doesn't mean no treatment. Explained the potential for creating suffering and harm if staff would need to perform CPR. Reassured Anoop that he can take some time to consider these big decisions and emotional support offered support to him. PC to remain available.
--- NOTE | 2021-05-03 09:54 | NUR ---
Ethics update: expanded use protocol does not ostensibly apply to the pharmaceutical reqeusted by the family. According to the published literature from the chopped strand operator, Zyesami / Aviptadil is not an individual status drug, and therefore must be used with a broader group of patients as part of the companies drug investigational process. In other words, it appears that a physician and his or her it support engineer must be administering the treatment to multiple infected patients simultaneously who all satisfy the drugs inclusion criteria. Both Dr Amaya and myself have reached out to the chopped strand operator for additional detail and clarification of thier expanded use standards.
--- NOTE | 2021-05-03 10:57 | NUR ---
ASSUMED CARE REPORT FROM DAMARIS TYSON AT 0700. PT INTUBATED, SEDATED AND PARALYZED. AT SHIFT CHANGE, O2 SATS TRENDING DOWN. DR FLEMING NOTIFIED. SUPINED PT AT 0800. ADVANCED ETT TO 25 AT LIP. O2 SATS REMAINED LOW, ADJUSTED VENT SETTINGS TO AV/PC 30//1.24/18/100%. LOW VOLUME ALARMS, LOW 200'S DESPITE RT ADJUSTMENTS. UPON SUPINE POSITION, LUNGS c CRACKLES IN RIGHT LOBE. CONCERN FO PNEUMO, REPEAT CHEST XRAY COMPLETED. NO PNEUMO NOTED. O2 SATS LOW 80'S. AND DAUGHTER CALLED TO BEDSIDE. UPDATED BY PALLATIVE CARE AND DR KAY NO CHANGE TO CODE STATUS. ROCURONIUM GTT, TO4 11/24, PT COMPLIANT c VENT. PROPOFOL AND FENTANYL GTT FOR PAIN AND SEDATION. BIS 40-50'S. SR ON MONITOR, RATE TRENDING UP SINCE SHIFT CHANGE, 80-100'S. BP STABLE. TUBE FEEDS CONTINUE AT GOAL. PICC TO RUE, POWERGLIDE TO LUE, DRESSINGS C/D/I. ALLRED PATENT, DRAINING MAXX URINE TO GRAVITY. WILL CONTINUE TO MONITOR CLOSELY.
--- NOTE | 2021-05-03 18:07 | NUR ---
SHIFT SUMMARY PT REMAINS INTUBATED, SEDATED AND PARALYZED. VENT SETTINGS AC/PC /1.24//100%. LUNGS CLEAR. TIDAL VOLUMES LOW WHEN PEEP INCREASED. CURRENTLY 270-280. ROCURONIUM GTT AT 11MCG/KG/MIN, TO4 11/24, VENT COMPLIANT. PROPOFOL AND FENTANYL GTT, BIS 40-50'S. LUNGS CLEAR. SCANT SECRETIONS. TUBE FEEDS CONTINUE AT GOAL. ALLRED PATENT, DRAINING MAXX URINE TO GRAVITY. CODE STATUS CHANGED TO DNR THIS SHIFT. FAMILY UPDATED. WILL CONTINUE TO MONITOR UNTIL REPORT TO ONCOMING NURSE.
--- NOTE | 2021-05-03 19:45 | NUR ---
ASSUMED CARE ASSUMED CARE AT 1900. INTUBATED- ETT8.0, 25CM AT TEETH. VENT SETTINGS: AC/PC 30/PEEP 12, FIO2 100%. RR 30. SEDATED WITH PROPOFOL AT 65MCG/KG/MIN AND FENTANYL 100MCG/HR. BIS MID-40s. ROCURONIUM CONTINUES AT 11MCG/KG/MIN. T04 4/4. NO SPONTANEOUS MOVEMENT OR RESPIRATIONS NOTED. MONITOR SHOWS NSR, RATE 80s. BP STABLE. AFEBRILE. OG WITH PIVOT 1.5 AT GOAL RATE OF 20CC/HR. 30CC H20 FLUSHES Q4H. OG RESIDUAL 300CC FORMULA/BILE. REFED 150CC AND TUBE FEEDING CONTINUES AT THIS TIME. HYPOACTIVE BTs. ALLRED PATENT AND DRAINING TO GRAVITY- MAXX URINE. JUAN PABLO PICC NOTED.
--- NOTE | 2021-05-03 23:30 | NUR ---
DECREASED O2 SATS PT INCONTINENT OF LARGE LIQUID BROWN STOOL. RECTAL TUBE PLACED AT THIS TIME. PT DID NOT TOLERATE TURNING SIDE TO SIDE FOR CLEANING. O2 SATS DECREASED TO LOW 70s.
--- NOTE | 2021-05-04 00:55 | NUR ---
FAMILY NOTIFIED , CALEB, NOTIFIED OF CONTINUED DECREASED O2 SATURATIONS. HE WILL BE COMING IN TO THE HOSPITAL WITH DAUGHTER.
[2021-05-04 03:48] LABS: Hematocrit 34.6 % (33.0-51.0); Hemoglobin 10.3 g/dL (11.5-16.0); Mean Corpuscular HGB 28.6 pg (26.0-34.0); Mean Corpuscular HGB Conc 29.8 g/dL (31.5-36.5); Mean Corpuscular Volume 96 fL (80-100); Mean Platelet Volume 10.4 fL (9.1-12.4); NRBC ABSOLUTE 0.03 K/mm3 (0.00-0.02); NRBC Auto 0.1 /100 WBC (0.0-0.2); Platelet Count 489 K/mm3 (150-400); RDW Coefficient Variation 13.7 % (11.7-14.2); RDW Standard Deviation 47.9 fL (35.1-46.3); White Blood Cell Count 22.63 K/mm3 (4.00-11.30)
[2021-05-04 04:04] LABS: Albumin, Blood 2.1 g/dL (3.4-5.0); Anion Gap -1 mmol/L (6-16); Blood Urea Nitrogen 28 mg/dL (8-24); Bun/Creatinine Ratio 64.4 (12.0-20.0); CO2, Blood 40 mmol/L (21-32); Chloride, Blood 96 mmol/L (98-108); Creatinine, Blood 0.44 mg/dL (0.40-1.00); Glomerular Filtration Rate >60 (60-); Glucose, Blood 181 mg/dL (70-99); Phosphorus, Blood 3.7 mg/dL (2.5-4.9); Potassium, Blood 4.6 mmol/L (3.5-5.5); Sodium, Blood 135 mmol/L (136-145)
[2021-05-04 05:43] LABS: BAND PERCENT MAN 1 % (0-8); BASOPHILS PERCENT MAN 0 % (0-2); EOSINOPHILS PERCENT MAN 0 % (0-6); LYMPHOCYTES ABSOLUTE MAN 1.35 K/mm3 (0.84-5.20); LYMPHOCYTES PERCENT MAN 6 % (21-46); METAMYELOCYTE ABSOLUTE MAN 0.22 K/mm3 (0.00-0.00); METAMYELOCYTE PERCENT MAN 1 % (0-0); MONOCYTES ABSOLUTE MAN 0.22 K/mm3 (0.16-1.47); MONOCYTES PERCENT MAN 1 % (4-13); MYELOCYTE ABSOLUTE MAN 1.35 K/mm3 (0.00-0.00); MYELOCYTE PERCENT MAN 6 % (0-0); NEUTROPHILS ABSOLUTE MAN 19.46 K/mm3 (1.96-9.15); SEG NEUTROPHILS PERCENT MAN 85 % (41-73); TOTAL CELLS COUNTED 100
--- NOTE | 2021-05-04 06:11 | NUR ---
SHIFT SUMMARY O2 SATURATIONS HAVE DECREASED TO LOW 70s SINCE APPROXIMATELY MIDNIGHT. FAMILY ( AND DAUGHTER) AT BEDSIDE. PT CONTINUES TO BE SEDATED WITH PROPOFOL AT 65MCG/KG/MIN AND FENTANYL AT 100MCG/HR. BIS 40s. ROCURONIUM AT 11MCG/KG/MIN. TO4 4/ T/O NOC. TUBE FEEDING CONTINUES PER ORDER. RESIDUALS BETWEEN 65-300. INCONTINENT OF LARGE LIQUID BROWN STOOL X 1- RECTAL TUBE PLACED AFTERWARDS. ALLRED PATENT AND DRAINING. PT CONTINUES TO BE A LIMITED CODE- MEDICATIONS AND DEFIBRILLATION ONLY. WILL REPORT TO ONCOMING RN WHEN AVAILABLE.
--- NOTE | 2021-05-04 15:36 | NUR ---
FAMILY UPDATE PT SPOUSE CALEB CAME TO THE DOOR REQUESTING TO SPEAK TO DR KAY IN PERSON. WHEN ASKED BY JANET TO WHAT ABOUT SO WE KNOW WHEN WE CALL DR KAY, THE SPOUSE SAID "I DONT WANT TO TELL YOU." DR KAY CALLED BY MARBELLA GONZALES TO COME SEE PT AT THIS TIME. NO ACUTE CHANGES TO PT CONDITION AT THIS TIME. WILL CONTINUE TO MONITOR.
--- NOTE | 2021-05-04 17:50 | NUR ---
SHIFT SUMMARY PT REMAINS INTUBATED, SEDATED, AND PARALYZED. VENT SETTINGS UNCHANGED. PRESSURE CONTROL 30, RR 24, PEEP 10, FIO2 100%. ETT SECRETIONS MINIMAL THIS SHIFT. PT SPO2 WITH STEADY DECLINE FROM HIGH 70 TO LOW 80'S DOWN TO 68-72 CONSISTENTLY. PICC TO JUAN PABLO REMAINS C/D/I. PT SEDATED WITH PROPOFOL AT 65 MCG/KG/MIN AND FENTANYL GTT AT 100 MCG/HR. PT PARALYZED WITH ROCURONIUM GTT AT 11 MCG/KG/MIN. OGT IN PLACE WITH TF INFUSING AT 20 ML/HR. MINIMAL RESIDUALS NOTED THIS SHIFT. ALLRED IN PLACE WITH YELLOW URINE OUTPUT NOTED. RECTAL TUBE REMAINS IN PLACE WITH LIQUID BROWN OUTPUT NOTED. PT SPOUSE AND DAUGHTER REMAIN AT BEDSIDE. TOF REMAINS 4/4 THIS SHIFT. BIS MONITOR 40-50'S. WILL CONTINUE TO MONITOR AND REPORT OFF TO ONCOMING RN.
--- NOTE | 2021-05-04 18:55 | NUR ---
Review of pt with event designer. has been contacted by drug company. will await approval.
--- NOTE | 2021-05-04 20:00 | NUR ---
ASSESSMENT/ASSUMED CARE PT INTUBATED AND ON [facility] VENT. AND DAUGHTER AT BEDSIDE. VENT SETTINGS CAFETERIA COUNTER ATTENDANT RATE 30 PI 24 PEEP 10 FIO2 100%. SPO2 IN THE 60'S. LUNGS DECREASED T/O. HEART RATE TACHY. BP STABLE. BT+HYPOACTIVE. TUBE FEED VIA OG AT 20 ML/HR, WATER 30 ML Q4HR. RESIDUAL 30 ML REFED. IV PICC TO RIGHT UPPER ARM SITE CLEAR. PROPOFOL AT 55 MCQ/KG/MIN, FENTANYL 100 MCQ/HR, ROCURONIUM 11 MCQ/KG/MIN AND NS AT 10 ML/HR. POWER GLIDE TO LEFT UPPER ARM SALINE LOCKED, SITE CLEAR. PT REPOSITIONED AND ORAL CARE DONE. TALKED WITH REGARDING SPO2 BEING LOW. EXPLAINED WHAT COULD HAPPEN DUE TO SPO2 BEING LOW. SAID,"I PROMISED HER NOT TO PULL THE PLUG. LET ME THINK ABOUT THIS SOME MORE".
--- NOTE | 2021-05-04 22:45 | NUR ---
COMFORT FAMILY ASKING ABOUT GOING COMFORT CARE. DR KAY NOTIFIED. PROPOFOL AND ROCURONIUM STOPPED. CONT FENTANYL. WAITING FOR RT TO EXTUBATED. , DAUGHTER, MOTHER IN LAW AND NEICE AT BEDSIDE.
--- NOTE | 2021-05-04 22:59 | NUR ---
EXTUBATED PT REMOVED FROM VENT. GASPING BREATHS NOTED. FAMILY AT BEDSIDE
--- NOTE | 2021-05-04 23:45 | NUR ---
PT DAUGHTER NEIL ASKS RE PTS [place] RING. UPON FURTHER DISCUSSION, RECOLLECTION OF MIRACLE TAKING PTS PURSE AND CELL PHONE AND BOOK AND SENDING HOME W PT CALEB. CALEB IS PRESENT FOR THIS DISCUSSION AND RECALLS THIS, IT IS FELT THAT THE RING IS IN PTS PURSE.
== END 2021-05-04 23:05 | DRG 207 ==
LOC: ER 15:07 → MEDS 20:25 → ICUE 20:25 → SURS 22:05 → ICUE 04-20 08:40
PROVIDERS: Family Medicine; Internal Medicine; Internal Medicine Critical Care Medicine; Physician Assistant; ADMIT Internal Medicine
PROC: 3E0333Z Introduction of Anti-inflammatory into Peripheral Vein, Percutaneous Approach (ICD-10-PCS; principal; 2021-04-16)
PROC: 5A09557 Assistance with Respiratory Ventilation, Greater than 96 Consecutive Hours, Continuous Positive Airway Pressure (ICD-10-PCS; 2021-04-16)
PROC: 5A1955Z Respiratory Ventilation, Greater than 96 Consecutive Hours (ICD-10-PCS; 2021-04-22)
PROC: 0BH17EZ Insertion of Endotracheal Airway into Trachea, Via Natural or Artificial Opening (ICD-10-PCS; 2021-04-22)
PROC: 3E033XZ Introduction of Vasopressor into Peripheral Vein, Percutaneous Approach (ICD-10-PCS; 2021-04-22)
PROC: 02HV33Z Insertion of Infusion Device into Superior Vena Cava, Percutaneous Approach (ICD-10-PCS; 2021-04-26)
DX: U07.1 COVID-19 (principal); J12.82 Pneumonia due to coronavirus disease 2019; J96.01 Acute respiratory failure with hypoxia; J15.6 Pneumonia due to other Gram-negative bacteria; E66.9 Obesity, unspecified; Z66 Do not resuscitate; I10 Essential (primary) hypertension; E83.51 Hypocalcemia; K21.9 Gastro-esophageal reflux disease without esophagitis; E87.6 Hypokalemia; J45.909 Unspecified asthma, uncomplicated; Z98.51 Tubal ligation status; Z79.899 Other long term (current) drug therapy; Z79.51 Long term (current) use of inhaled steroids; Z68.35 Body mass index [BMI] 35.0-35.9, adult; Z78.1 Physical restraint status
CPT/HCPCS: 31500; 36415; 36569; 36600; 71045; 71260; 80048; 80053; 80069; 80202; 81001; 82306; 82330; 82803; 82947; 83605; 83735; 84100; 84145; 84484; 85025; 85027; 85379; 86140; 86141; 87070; 87077; 87086; 87186; 87205; 93005; 93010; 94002; 94003; 94640; 94660; 94664; 94762; 96374; 99285-25; A9270; C1751; C9113; J0360; J0696; J1100; J1650; J1940; J2060; J2250; J2270; J2405; J2543; J2704; J2765; J2930; J3010; J3370; J3480; J7030; J7040; J7050; J7060; J7120; Q9967